=== PATIENT | male | born 1945 | race Caucasian/White ===

== ENCOUNTER 2020-02-25 11:50 | Day surgery (SDC) | payer MEDICARE, OTHER ==
[2020-02-24 08:34] VITALS: BMI 29.1
[~2020-02-25 11:50] MED LIST: LACTATED RINGERS 1,000 ML IV SCH; SODIUM CHLORIDE 0.9% 1,000 ML IV SCH
[2020-02-25 12:30] LABS: Basophils # (A) 0.1 k/uL (0-0.2); Basophils % (A) 1 %; Eosinophils # (A) 0.2 k/uL (0-0.7); Eosinophils % (A) 3 %; HCT 42.8 % (39.0-53.0); HGB 13.9 gm/dL (13.0-17.5); Lymphocytes # (A) 2.2 k/uL (1.0-4.8); Lymphocytes % (A) 29 %; MCH 30.8 pg (25.0-35.0); MCHC 32.6 g/dL (31.0-37.0); MCV 94.6 fL (80.0-100.0); Mean Platelet Volume 7.1; Monocytes # (A) 0.6 k/uL (0-1.0); Monocytes % (A) 8 %; Neutrophils # (A) 4.4 k/uL (1.3-7.7); Neutrophils % (A) 57 %; Platelet Count 250 k/uL (150-450); RBC 4.52 m/uL (4.30-5.90); RDW 13.4 % (11.5-15.5); WBC 7.8 k/uL (3.8-10.6)
[2020-02-25 13:03] LABS: Calcium 9.6 mg/dL (8.4-10.2)
[2020-02-25] MEDS ORDERED: fentaNYL (PF) 50 MCG/ML 2 ML AMP ONE (14:32)
[2020-02-25] MEDS ORDERED: GLYCOPYRROLATE 0.2 MG/ML 2 ML VIAL ONE (14:32)
[2020-02-25] MEDS ORDERED: ROCURONIUM BROMIDE 10 MG/ML 5 ML VIAL IV ONE (14:32)
[2020-02-25] MEDS ORDERED: FUROSEMIDE 10 MG/ML 2 ML VIAL ONE (14:32)
[2020-02-25] MEDS ORDERED: ISOPROTERENOL 250 MCG/1.25 ML SYR IV ONE (14:32)
[2020-02-25] MEDS ORDERED: NEOSTIGMINE 1 MG/ML 10 ML VIAL ONE (14:32)
[2020-02-25] MEDS ORDERED: SODIUM CHLORIDE 0.9% 1,000 ML IV ONE (14:32)
[2020-02-25] MEDS ORDERED: MIDAZOLAM 2 MG/2 ML VIAL ONE (14:32)
[2020-02-25] MEDS ORDERED: ePHEDrine SULFATE/0.9% NACL/PF 50 MG/5 ML SYRINGE IV ONE (14:32)
[2020-02-25] MEDS ORDERED: PHENYLEPHRINE-0.9% NACL SYG 1 MG/10 ML SYRINGE ONE (14:32)
[2020-02-25] MEDS ORDERED: PROPOFOL 10 MG/ML 20 ML VIAL IV ONE (14:32)
[2020-02-25] MEDS ORDERED: SUCCINYLCHOLINE CHLORIDE 100 MG/5 ML SYR IV ONE (14:32)
[2020-02-25] MEDS ORDERED: LIDOCAINE 1% INJ 10MG/ML (20 ML MDV) ONE ×2 (14:32→14:45)
[2020-02-25] MEDS ORDERED: HEPARIN SODIUM,PORCINE 10,000 UNIT/ML 1 ML VIAL ONE (14:32)
[2020-02-25 14:35] VITALS: RESP 16
[2020-02-25] MEDS ORDERED: HEPARIN SODIUM 1,000 UN/ML (10ML VL) ONE (14:56)
[2020-02-25] MEDS ORDERED: HEPARIN SODIUM (1,000 UNIT/ML) 1,000 UNIT in SODIUM CHLORIDE 0.9% 1,000 ML IRRIGATION ONE (15:11)
[2020-02-25] MEDS ORDERED: LIDOCAINE 1% INJ 10MG/ML (20 ML MDV) SQ ONE (15:26)
[2020-02-25] MEDS ORDERED: HEPARIN SOD,PORK IN 0.45% NACL 25,000 UNIT in 0.45% NACL 1 250ML.BAG IV ONE (15:45)
[2020-02-25] MEDS ORDERED: IOPAMIDOL-370 100ML BTL INJ ONE (17:03)
[2020-02-25] MEDS ORDERED: LACTATED RINGERS 1,000 ML IV ONE (18:26)
[2020-02-25] MEDS ORDERED: ACETAMINOPHEN TAB 325 MG TAB PO PRN (18:51)
[2020-02-25] MEDS ORDERED: HYDROcodone/APAP 5-325MG 1 EACH TAB PO PRN (18:51)
--- NOTE | 2020-02-25 18:51 | P.PCN ---
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 Written informed consent was obtained prior to the procedure. Procedure performed under general anesthesia After initial muscle relaxant use, muscle relaxants were not given thereafter in order to assess phrenic nerve during procedure. Patient prepped and draped as per protocol Full cryo-set up with standard preparation of the cryoablation tools done. Femoral Venous access obtained on the right and left groins Venous and arterial Sheaths placed. Diagnostic catheters for the high right atrium, phrenic nerve stimulation and pacing, His bundle, RV and coronary sinus placed Intracardiac echo catheter placed. Long sheath placed in the right atrium Left and right transseptal catheterization performed under intracardiac echo guidance. Intravenous heparin with aCT above 300 Later, catheter positioning and balloon positioning in the left atrium, under intracardiac echo guidance Diagnostic EP study with Drug infusion Coronary sinus pacing and recording Baseline measurements Left bundle branch block pattern QRS 133 ms, QT 4:30 milliseconds, OH 140 ms AH 43, HV 58 Atrial pacing performed from the high right atrium and the coronary sinus Burst stimulation and extra stimulation after double extra stimuli Easily inducible AV christine reentrant tachycardia prior to slow pathway ablation RV pacing VA Wenckebach block to 90 Ventricle extra stimulation performed Transseptal catheterization performed RA pressure 16/6/11 LA pressure 35/9/15 Transseptal catheterization performed with standard sheath. The cryoablation sheath was then placed with an over the wire exchange without any acute complications. All 4 pulmonary veins were isolated in the following sequence: Left superior followed by left inferior followed by right superior followed by right inferior The cryo-ablation balloon was placed at the os of each vein 1.5 mL of IV dye was injected to confirm an occluded vein Goal during cryoablation was to achieve complete occlusion of the pulmonary vein, achieve -30 degrees C at 30 seconds and achieve -40 degrees C at 60 seconds and a time to effect of less than 60-90 seconds, . If not the balloon was repositioned to obtain this result After completion of Cryoblation with durations from 180-240 seconds, entrance block was confirmed with the Attain circular catheter in a roving fashion around the antrum of the pulmonary veins Phrenic nerve pacing was performed from the SVC, right innominate vein area and diaphragm voltage was monitored. Diaphragmatic contractions were also monitored manually for strength of contraction. Parameter goals for each cryo freeze Complete occlusion of the appropriate vein -30 degrees C by 30 seconds -40 degrees C by 60 seconds Minimum between minus 40-55 degrees C Thaw time greater than 10 seconds Balloon visualized by intracardiac echo The esophagus was intubated. Esophageal Temperature monitoring with a CIRCA catheter formed. Esophageal deflection for hypothermia of the esophagus below 30 degrees C Left superior pulmonary vein Complete isolation, entrance block Left inferior pulmonary vein Complete isolation, entrance block Right superior pulmonary vein, during phrenic nerve pacing Complete isolation, entrance block Right inferior pulmonary vein, during phrenic nerve pacing Complete isolation, entrance block At the end of the procedure the Achieve catheter was once again used to check for entrance block Phrenic nerve stimulation was performed to confirm diaphragmatic stimulation the end of the procedure Cine fluoroscopy was performed at the very end of the procedure to confirm movement of both diaphragms with inspiration and expiration At the start of study patient was in A. fib He spontaneously converted during the procedure We performed complete isolation of the pulmonary veins 3-D and a Toradol mapping of the left atrium. Poni veins were completely isolated Voltage mapping was performed Linear ablation along the fractionated signals in the septum of the left atrium was performed And RF line of block was made from the superior, anterior or SPV down to our IPV This segment was completely isolated Thereafter he had no further atrial fibrillation inducible on and off Isuprel with burst stimulation extra stimulation However he had recurrent episodes of AV christine reentrant tachycardia both spontaneous and inducible 3-D electro anatomic mapping was performed The His bundle area and the Drake sinus was tagged Slow pathway was mapped RF ablation was performed with an irrigated tip catheter with the part of between 20-25 W for about 30 seconds Occasional junctional rhythm was noted, good contact force AV christine reentrant tachycardia rendered noninducible both on and off Isuprel At the end of the procedure the patient was extubated Heparin was reversed Venous sheaths were removed and hemostasis assured Procedures performed (PVI - CRYO Ablation) Diagnostic EP study CS pacing and recording Left and right transseptal catheterization 3D mapping) Intracardiac echocardiography Pulmonary vein isolation with transseptal and comprehensive EPS, 72700 Linear ablation, left atrium, +[id number] Atrial ablation for AV christine reentrant tachycardia/ablation of a discrete arrhythmia focus, +[id number] Drug Infusion +[id number]
[2020-02-25] MEDS ORDERED: ACETAMINOPHEN IV (For NPO) 1,000 MG in EMPTY BAG 1 BAG IVPB ONE (20:00)
[2020-02-25] MEDS: APIXABAN 5 MG TAB PO SCH (20:37)
[2020-02-26 07:44] VITALS: BP 147/69; PULSE 77; TEMP 97.7
--- NOTE | 2020-02-26 07:51 | P.DS ---
Providers Attending physician: Rush Johnson Primary care physician: [facility] Course: Patient is doing well. He denies any chest discomfort no dizziness lightheadedness or palpitations. His back hurts. He has no strokes Delaney His rhythm is normal his underlying left bundle branch block No orthopnea PND no pleuritic chest discomfort On examination he is afebrile 97.7F, blood pressure 114/69 mmHg, pulse rate in the 60s and 70s Pulse ox normal Breath sounds are clear no rhonchi no crackles Soft S1-S2 no murmurs or gallops no rub Abdomen is soft nontender extremities are warm no edema Groins healing well no hematoma Impression Paroxysmal symptomatic atrial fibrillation and intolerance to flecainide Recurrent palpitations almost on a daily basis Aortic valve replacement, by prostatic valve Preserved LV systolic function on intracardiac echo, no pericardial effusion Patient underwent a diagnostic EP study which revealed #1 paroxysmal atrial fibrillation #2 very frequent spontaneous episodes of AV christine reentrant tachycardia Patient underwent ablation for AVNRT, slow pathway ablation This was successful Fast pathway conduction remained intact postprocedure Tachycardia rendered noninducible Cryoablation of the pulmonary veins with complete isolation Linear ablation in the posterior septum along areas of fractionation Atrial fibrillation could not be induced despite high-dose Isuprel burst stimulation from multiple sites and atrial extra stimulation from multiple sites with double extrastimuli. Plan Continue amlodipine 5 mg daily Continue apixaban 5 mg twice daily Continue losartan Discharge home today in follow-up with Dr. Lofton in a week Patient Condition at Discharge: Stable Plan - Discharge Summary Discharge Rx Participant: Yes New Discharge Prescriptions: No Action Losartan [Cozaar] 25 mg PO DAILY amLODIPine [Norvasc] 5 mg PO DAILY Aspirin [Adult Low Dose Aspirin EC] 81 mg PO QAM Cholecalciferol [Vitamin D3 (25 Mcg = 1000 Iu)] 1,000 unit PO DAILY [place]-3 Fatty Acids/Fish Oil [Fish Oil 1,000 mg Softgel] 1 each PO DAILY Multivitamin/Iron/Folic Acid [Centrum Adults Tablet] 1 each PO DAILY Flaxseed Oil 1,000 mg PO DAILY Apixaban [Eliquis] 5 mg PO BID Discharge Medication List Apixaban [Eliquis] 5 mg PO BID 02/24/20 [History] Aspirin [Adult Low Dose Aspirin EC] 81 mg PO QAM 09/16/20 [History] Cholecalciferol [Vitamin D3 (25 Mcg = 1000 Iu)] 1,000 unit PO DAILY 02/24/20 [History] Flaxseed Oil 1,000 mg PO DAILY 02/24/20 [History] Losartan [Cozaar] 25 mg PO DAILY 02/24/20 [History] Multivitamin/Iron/Folic Acid [Centrum Adults Tablet] 1 each PO DAILY 02/24/20 [History] [place]-3 Fatty Acids/Fish Oil [Fish Oil 1,000 mg Softgel] 1 each PO DAILY 02/24/20 [History] amLODIPine [Norvasc] 5 mg PO DAILY 02/24/20 [History] Follow up Appointment(s)/Referral(s): Rush Johnson MD [STAFF PHYSICIAN] - As Needed Reba Lofton MD [STAFF PHYSICIAN] - 1 Week Activity/Diet/Wound Care/Special Instructions: Post EP study - Ablation instructions 1. Keep access sites dry for 2 days. 2. No heavy lifting or straining for 2 days. 3. Avoid bending the hips repeatedly for 2 days. 4. You may go up and down stairs slowly Call if the following is noted 1. Bleeding, increasing swelling or pain at the access sites. 2. Increasing chest discomfort, especially upon taking a deep breath. 3. Increasing shortness of breath, at rest or with exertion. 4. Undue cough / phlegm 5. Difficulty or pain while swallowing. 6. Pain or change in color in the extremities. 7. Fever, chills, rigors. 8. Increasing headache or neurologic symptoms. 9. Dizziness, fainting, palpitations Continue ELIQUIS Continue hypertension medications Continue aspirin Discharge Disposition: HOME SELF-CARE
--- NOTE | 2020-02-26 07:56 | P.PRLE ---
RE: YosvanyBrian Gabi Abbott Mr. Bar underwent a diagnostic EP study for symptomatic arrhythmias. He is intolerant of flecainide Patient underwent a diagnostic EP study which revealed #1 paroxysmal atrial fibrillation #2 very frequent spontaneous episodes as well as very easily inducible episodes of of AV christine reentrant tachycardia #3 left bundle branch block QRS Patient underwent ablation for AVNRT, slow pathway ablation This was successful Fast pathway conduction remained intact postprocedure Tachycardia rendered noninducible Cryoablation of the pulmonary veins with complete isolation Linear ablation in the posterior septum along areas of fractionation Atrial fibrillation could not be induced despite high-dose Isuprel burst stimulation from multiple sites and atrial extra stimulation from multiple sites with double extrastimuli. His aortic valve on intracardiac echo looks stable, no evidence for pericardial effusion LV function is normal Plan Continue amlodipine 5 mg daily Continue apixaban 5 mg twice daily Continue losartan Discharge home today in follow-up with Dr. Lofton in a week Thank you for entrusting me with the care of the patient Warm regards Sincerely Rush Johnson
[2020-02-26] MEDS: APIXABAN 5 MG TAB PO SCH (08:52)
[2020-02-26] MEDS ORDERED: amLODIPine 5 MG TAB PO SCH (09:00)
[2020-02-26] MEDS ORDERED: LOSARTAN 25 MG TAB PO SCH (09:00)
[2020-02-26] MEDS ORDERED: ASPIRIN 81 MG PO SCH (09:00)
== END 2020-02-26 14:55 | disposition home or self-care (01) ==
LOC: CATHEP 11:50 → 3NCARDOBS 18:23 → CATHEP 02-26 14:55
PROVIDERS: ATTEND Internal Medicine Clinical Cardiac Electrophysiology
DX: I48.0 Paroxysmal atrial fibrillation (principal); I47.1 Supraventricular tachycardia; R55 Syncope and collapse; I44.7 Left bundle-branch block, unspecified; Z95.2 Presence of prosthetic heart valve; I25.10 Atherosclerotic heart disease of native coronary artery without angina pectoris; I10 Essential (primary) hypertension; Z79.01 Long term (current) use of anticoagulants; Z79.82 Long term (current) use of aspirin; Z79.899 Other long term (current) drug therapy; Z88.8 Allergy status to other drugs, medicaments and biological substances
CPT/HCPCS: 85347; 93623; 93662; 93613; 93656; 93657; 80048; 85025; C1769 ×5; C1894 ×2; C1759; C1893; C1733; C1766; C1730; C1732; J2250; J1644 ×3; J1940; J2710; J0690; J2001; J3010; J2370; J0330; J2704; Q9967

== ENCOUNTER → 2020-10-07 | Outpatient (CLI) | payer OTHER ==
--- NOTE | 2020-10-10 06:54 | PE ---
EXAMINATION TYPE: PET CT fusion whole body DATE OF EXAM: 10/07/2020 COMPARISON: NONE HISTORY: Malignant melanoma recently diagnosed on back biopsy July 25 and subsequent surgical ex cision August 15, 2020 TECHNIQUE: Following the intravenous administration of 11.15 mCi of F-18 FDG, whole body images are performed from the top of skull to the bottom of feet. Images are reviewed on the computer in the co leopoldo, axial, and sagittal planes. Reconstructed rotating images are created on independent workstat ion and reviewed on the computer. A localization and attenuation correction CT is performed in conj unction with the PET scan. Blood glucose level was 97 SCAN: Initial Scan FINDINGS: HEAD AND NECK: No areas of suspicious hypermetabolic uptake. CHEST, MEDIASTINUM, AND HILAR REGION: No areas of suspicious hypermetabolic uptake. Heterogeneous fat stranding right posterior mid thorax near axial image 124 likely reflects scarring from surgical exc ision. No suspicious hypermetabolic uptake at this level. ABDOMEN AND PELVIS: No areas of suspicious hypermetabolic uptake. OSSEOUS STRUCTURES: No areas of suspicious hypermetabolic uptake. LOWER EXTREMITIES: No areas of suspicious hypermetabolic uptake. OTHER CT: Moderate calcified plaque bilateral carotid bulb level. Overlying sternal wires and mediast inal clips. Surgical change to distal left clavicle. Ascending aortic aneurysm up to 4.4 cm. Small to moderate size hiatal hernia. Diverticula in the sigmoid colon. Moderate-sized fat-containing left inguinal hernia. Prostate gland upper limits of normal in size. IMPRESSION: No areas of abnormal hypermetabolic uptake to suggest metastatic malignancy.
== END | disposition home or self-care (01) ==
LOC: RADPETMAIN 13:59
PROVIDERS: ATTEND Internal Medicine
DX: C43.9 Malignant melanoma of skin, unspecified (principal)
CPT/HCPCS: 78816; A9552

== ENCOUNTER → 2021-06-30 | Outpatient (CLI) | payer OTHER ==
--- NOTE | 2021-07-03 06:59 | PE ---
EXAMINATION TYPE: PET CT fusion skull to thigh DATE OF EXAM: 06/30/2021 COMPARISON: Prior PET/CT October 07, 2020 HISTORY: Malignant melanoma diagnosed on back biopsy July 25 and subsequent surgical excision [facility] 2020 TECHNIQUE: Following the intravenous administration of 11.21 mCi of F-18 FDG, whole body images are performed from the mid brain to the bottom of feet. Images are reviewed on the computer in the coron al, axial, and sagittal planes. Reconstructed rotating images are created on independent workstation and reviewed on the computer. A localization and attenuation correction CT is performed in conjunc tion with the PET scan. Blood glucose level equals 100. SCAN: Subsequent Scan FINDINGS: HEAD AND NECK: Entire head was not included. No new areas of suspicious hypermetabolic uptake. CHEST, MEDIASTINUM, AND HILAR REGION: No new areas of suspicious hypermetabolic uptake. Less well vis ualized scar posterior right mid thorax region. No suspicious hypermetabolic uptake at this level tirso r axial image 97. ABDOMEN AND PELVIS: No new areas of suspicious hypermetabolic uptake. OSSEOUS STRUCTURES: No new areas of suspicious hypermetabolic uptake. LOWER EXTREMITIES: No new areas of suspicious hypermetabolic uptake. OTHER CT: Moderate calcified plaque posteriorly bilateral carotid bulb level. Overlying sternal wires and mediastinal clips with metallic aortic valve redemonstrated. Surgical change to distal left clav icle. Ascending aortic aneurysm up to 4.4 redemonstrated. Surgical clips right axilla now seen. Small to moderate size hiatal hernia again seen. Diverticula in the sigmoid colon redemonstrated. Mod erate to large size fat-containing left inguinal hernia. Prostate gland upper limits of normal in siz e. Injection site left hand on the MIP images IMPRESSION: No areas of abnormal hypermetabolic uptake to suggest recurrent malignant melanoma.
== END | disposition home or self-care (01) ==
LOC: RADPETMAIN 11:54
PROVIDERS: ATTEND Internal Medicine
DX: C43.59 Malignant melanoma of other part of trunk (principal)
CPT/HCPCS: 78815; A9552

== ENCOUNTER 2022-02-08 09:34 | Emergency (ER) | payer OTHER ==
[2022-02-08 09:49] VITALS: BP 140/69; PULSE 57; RESP 18; TEMP 97.9
[2022-02-08 11:02] LABS: Basophils # (A) 0.1 k/uL (0-0.2); Basophils % (A) 1 %; Eosinophils # (A) 0.3 k/uL (0-0.7); Eosinophils % (A) 4 %; HCT 40.2 % (39.0-53.0); HGB 13.1 gm/dL (13.0-17.5); Lymphocytes # (A) 1.6 k/uL (1.0-4.8); Lymphocytes % (A) 20 %; MCH 30.6 pg (25.0-35.0); MCHC 32.7 g/dL (31.0-37.0); MCV 93.7 fL (80.0-100.0); Mean Platelet Volume 7.3; Monocytes # (A) 0.9 k/uL (0-1.0); Monocytes % (A) 12 %; Neutrophils # (A) 4.9 k/uL (1.3-7.7); Neutrophils % (A) 60 %; Platelet Count 206 k/uL (150-450); RBC 4.29 m/uL (4.30-5.90); RDW 12.6 % (11.5-15.5); WBC 8.1 k/uL (3.8-10.6)
[2022-02-08 11:12] LABS: Albumin 4.1 g/dL (3.5-5.0); Calcium 11.8 mg/dL (8.4-10.2); Potassium 4.5 mmol/L (3.5-5.1); Total Bilirubin 0.5 mg/dL (0.2-1.3); Total Protein 7.3 g/dL (6.3-8.2)
[2022-02-08] MEDS ORDERED: SODIUM CHLORIDE 0.9% 1,000 ML IV ONE (12:24)
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
== END 2022-02-08 13:37 | disposition home or self-care (01) ==
LOC: EC 09:34
DX: E83.52 Hypercalcemia (principal); I25.10 Atherosclerotic heart disease of native coronary artery without angina pectoris; I10 Essential (primary) hypertension; Z87.891 Personal history of nicotine dependence; Z79.82 Long term (current) use of aspirin; Z79.899 Other long term (current) drug therapy
CPT/HCPCS: 36415; 80053; 85025; 96360; 99284

== ENCOUNTER 2022-02-21 15:38 | Inpatient (IN) | payer OTHER, MEDICARE ==
[2022-02-21 17:32] LABS: Basophils # (A) 0.1 k/uL (0-0.2); Basophils % (A) 1 %; Eosinophils # (A) 0.3 k/uL (0-0.7); Eosinophils % (A) 4 %; HCT 39.1 % (39.0-53.0); HGB 13.1 gm/dL (13.0-17.5); Lymphocytes # (A) 2.1 k/uL (1.0-4.8); Lymphocytes % (A) 25 %; MCH 30.8 pg (25.0-35.0); MCHC 33.5 g/dL (31.0-37.0); Monocytes % (A) 12 %; Neutrophils # (A) 4.4 k/uL (1.3-7.7); Neutrophils % (A) 54 %; Platelet Count 215 k/uL (150-450); RBC 4.25 m/uL (4.30-5.90); RDW 12.9 % (11.5-15.5); WBC 8.1 k/uL (3.8-10.6)
[2022-02-21 17:39] LABS: Albumin 4.2 g/dL (3.5-5.0); Calcium 12.4 mg/dL (8.4-10.2); Potassium 4.5 mmol/L (3.5-5.1); Total Bilirubin 0.6 mg/dL (0.2-1.3)
[2022-02-21] MEDS ORDERED: SODIUM CHLORIDE 0.9% 1,000 ML IV STA (18:47)
[2022-02-21 19:02] LABS: Appearance,Urine Clear (Clear); Bilirubin,Urine Negative (Negative); Blood,Urine Negative (Negative); Color,Urine Light Yellow; Glucose,Urine (UA) Negative (Negative); Ketones,Urine Negative (Negative); Leukocyte Esterase,Urine Negative (Negative); Nitrite,Urine Negative (Negative); PH, Urine 6.5 (5.0-8.0); Protein,Urine Negative (Negative); Specific Gravity,Urine 1.009 (1.001-1.035); Urobilinogen,Urine <2.0 mg/dL (<2.0)
[2022-02-21 19:19] LABS: Magnesium 2.2 mg/dL (1.6-2.3); Phosphorus 5.1 mg/dL (2.5-4.5)
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
[2022-02-21 19:44] LABS: Ionized Calcium 6.6 mg/dL (4.5-5.3)
[2022-02-21] MEDS: SODIUM CHLORIDE 0.9% 1,000 ML IV SCH ×2 (20:04→23:00)
[2022-02-21] MEDS ORDERED: NALOXONE 0.4 MG/ML 1 ML VIAL IV PRN (20:25)
[2022-02-21] MEDS ORDERED: ALBUTEROL NEBULIZED 2.5 MG/3 ML INHALATION PRN (20:32)
[2022-02-21] MEDS ORDERED: amLODIPine 10 MG TAB PO SCH (21:00)
[2022-02-21] MEDS: APIXABAN 5 MG TAB PO SCH (21:34)
[2022-02-21] MEDS: METOPROLOL TARTRATE 50 MG TAB PO SCH (21:34)
[2022-02-21] MEDS: amLODIPine 10 MG TAB PO SCH (21:34)
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
--- NOTE | 2022-02-22 02:18 | US ---
EXAM: US Retroperitoneal Limited, Renal CLINICAL HISTORY: ITS.REASON US Reason: kidney US TECHNIQUE: Real-time limited ultrasound of the retroperitoneum with image documentation. COMPARISON: No relevant prior studies available. FINDINGS: Right kidney: 11.3 cm in length. Increased echogenicity of renal parenchyma. Small echogenic area. No solid mass. No hydronephrosis. Left kidney: 10.4 cm. Increased echogenicity of parenchyma. Small echogenic area. No solid mass. No hydronephrosis. 1.5 cm mildly complex cyst with a septation. Bladder: Normal. Bilateral ureteral jets are seen. IMPRESSION: Increased echogenicity of renal parenchyma consistent with nonspecific medical renal disease. No hydronephrosis. Small bilateral echogenic areas which may represent stones.
[2022-02-22] MEDS: SODIUM CHLORIDE 0.9% 1,000 ML IV SCH ×3 (06:25→22:16)
[2022-02-22] MEDS: LEVOTHYROXINE 50 MCG TAB PO SCH (06:25)
[2022-02-22 07:46] LABS: Basophils # (A) 0.1 k/uL (0-0.2); Basophils % (A) 1 %; Eosinophils # (A) 0.3 k/uL (0-0.7); Eosinophils % (A) 3 %; HCT 39.7 % (39.0-53.0); HGB 13.1 gm/dL (13.0-17.5); Lymphocytes # (A) 1.8 k/uL (1.0-4.8); Lymphocytes % (A) 21 %; MCH 30.7 pg (25.0-35.0); MCHC 32.9 g/dL (31.0-37.0); MCV 93.4 fL (80.0-100.0); Mean Platelet Volume 7.3; Monocytes # (A) 0.9 k/uL (0-1.0); Monocytes % (A) 11 %; Neutrophils # (A) 5.2 k/uL (1.3-7.7); Neutrophils % (A) 61 %; Platelet Count 209 k/uL (150-450); RBC 4.25 m/uL (4.30-5.90); RDW 12.8 % (11.5-15.5); WBC 8.4 k/uL (3.8-10.6)
[2022-02-22 07:59] LABS: Calcium 11.2 mg/dL (8.4-10.2); Magnesium 1.9 mg/dL (1.6-2.3); Potassium 4.2 mmol/L (3.5-5.1); Total Protein 6.8 g/dL (6.3-8.2)
[2022-02-22] MEDS: ATORVASTATIN 20 MG TAB PO SCH (08:14)
[2022-02-22] MEDS: APIXABAN 5 MG TAB PO SCH ×2 (08:14→22:15)
[2022-02-22] MEDS: amLODIPine 10 MG TAB PO SCH (08:14)
[2022-02-22] MEDS: ASPIRIN 81 MG PO SCH (08:14)
[2022-02-22] MEDS: METOPROLOL TARTRATE 50 MG TAB PO SCH ×2 (08:14→22:15)
[2022-02-22] MEDS: DULoxetine HCL 30 MG CAPSULE.DR PO SCH (08:14)
[2022-02-22] MEDS ORDERED: FUROSEMIDE 40 MG TAB PO SCH (09:00)
[2022-02-22] MEDS ORDERED: FUROSEMIDE 10 MG/ML 2 ML VIAL IV ONE (09:59)
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
[2022-02-22] MEDS: hydrALAZINE HCL 25 MG TAB PO SCH ×3 (13:17→22:15)
--- NOTE | 2022-02-22 13:23 | P.PN ---
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 Patient was admitted for acute renal failure. Nephrology consulted. Workup for hypercalcemia pending. Oncology consulted. Subjective: Patient seen and examined at bedside. No acute events overnight. He denies any chest pain, shortness of breath, abdominal pain, or urinary complaints. He does have constipation occasionally. Pertinent positives and negatives as discussed above, a complete review of systems was performed and all other systems are negative. Vitals Signs Reviewed. General: nontoxic, no distress, appears at stated age Derm: warm, dry Head: atraumatic, normocephalic, symmetric Eyes: EOMI, no lid lag, anicteric sclera Mouth: no lip lesion, mucus membranes moist Cardiovascular: S1S2 reg, systolic murmur Lungs: CTA bilateral, no rhonchi, no rales , no accessory muscle use Abdominal: soft, nontender to palpation, no guarding, no appreciable organomegaly Ext: no gross muscle atrophy, trace peripheral edema, no contractures Neuro: CN II-XI grossly intact, no focal neuro deficits Psych: Alert, oriented, appropriate affect Assessment and Plan: Hypercalcemia Acute kidney injury on CKD stage III -PTH appropriately suppressed -Further workup for hypercalcemia pending -Kidney Ultrasound - nonspecific medical renal disease, small bilateral echogenic areas which may represent stones -Hypercalcemia may be secondary to malignancy, oncology consult -Nephrology consulted -Decreased normal saline rate to 100 mL an hour -Patient will get 20 Lasix IV once today Hypertension -amlodipine 10 mg -Hydralazine 25mg 3 times a day added per nephrology History of melanoma, undergoing chemotherapy Chronic conditions: Atrial fibrillation Dyslipidemia -Continue home medications F: Normal saline 100 cc an hour E: Replete as needed N: Heart healthy diet A: As tolerated DVT ppx: Eliquis Code status: Full code Anticipated discharge place: Home Anticipated discharge time: 1-2 days Objective - Vital Signs Vital signs: Vital Signs Temp 97.7 F 02/22/22 11:30 Pulse 51 L 02/22/22 11:30 Resp 16 02/22/22 11:30 BP 154/71 02/22/22 11:30 Pulse Ox 97 02/22/22 11:30 FiO2 Intake & Output 02/21/22 02/22/22 02/22/22 18:59 06:59 18:59 Intake Total 600 Balance 600 Weight 73.482 kg 73.482 kg Intake: Intake, IV Titration 600 Amount Sodium Chloride 0.9% 1, 600 000 ml @ 100 mls/hr IV . Q10H [facility] Rx#:[id number] Other: Voiding Method Toilet # Voids 1 - Labs CBC & Chem 7: 02/22/22 07:33 02/22/22 07:33 Labs: Abnormal Lab Results - Last 24 Hours (Table) 02/21/22 02/21/22 02/21/22 Range/Units 17:07 17:07 18:25 RBC 4.25 L (4.30-5.90) m/uL BUN 37 H (9-20) mg/dL Creatinine 2.12 H (0.66-1.25) mg/dL Calcium 12.4 H (8.4-10.2) mg/dL Ionized Calcium Alvarez 6.6 H* (4.5-5.3) mg/dL Phosphorus 5.1 H (2.5-4.5) mg/dL PTH Intact (14.0-72.0) pg/mL 02/21/22 02/22/22 02/22/22 Range/Units 18:25 07:33 07:33 RBC 4.25 L (4.30-5.90) m/uL BUN 34 H (9-20) mg/dL Creatinine 1.93 H (0.66-1.25) mg/dL Calcium 11.2 H (8.4-10.2) mg/dL Ionized Calcium Alvarez (4.5-5.3) mg/dL Phosphorus (2.5-4.5) mg/dL PTH Intact 5.9 L (14.0-72.0) pg/mL
[2022-02-22] MEDS ORDERED: SODIUM CHLORIDE 0.9% 250 ML with PAMIDRONATE 30 MG IV ONE ×2 (14:00)
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
[2022-02-23] MEDS: SODIUM CHLORIDE 0.9% 1,000 ML IV SCH (02:38)
[2022-02-23 04:21] VITALS: RESP 16
[2022-02-23] MEDS: LEVOTHYROXINE 50 MCG TAB PO SCH (05:10)
[2022-02-23 08:09] LABS: ALT 15 U/L (4-49); AST 19 U/L (17-59); African American GFR (CKD) 37 (>60 ml/min/1.73 sqM); Albumin 3.7 g/dL (3.5-5.0); Albumin/Globulin Ratio 1.4; Alkaline Phosphatase 53 U/L (38-126); Anion Gap 9 mmol/L; Blood Urea Nitrogen 34 mg/dL (9-20); Calcium 10.5 mg/dL (8.4-10.2); Carbon Dioxide 27 mmol/L (22-30); Chloride 104 mmol/L (98-107); Globulin 2.7 g/dL; Glucose 91 mg/dL (74-99); Magnesium 1.8 mg/dL (1.6-2.3); Non-African American GFR(CKD) 32 (>60 ml/min/1.73 sqM); Sodium 140 mmol/L (137-145); Total Bilirubin 0.6 mg/dL (0.2-1.3); Total Protein 6.4 g/dL (6.3-8.2)
[2022-02-23] MEDS: ATORVASTATIN 20 MG TAB PO SCH (08:51)
[2022-02-23] MEDS: METOPROLOL TARTRATE 50 MG TAB PO SCH (08:51)
[2022-02-23] MEDS: ASPIRIN 81 MG PO SCH (08:51)
[2022-02-23] MEDS: DULoxetine HCL 30 MG CAPSULE.DR PO SCH (08:51)
[2022-02-23] MEDS: hydrALAZINE HCL 25 MG TAB PO SCH (08:51)
[2022-02-23] MEDS: APIXABAN 5 MG TAB PO SCH (08:51)
[2022-02-23] MEDS ORDERED: amLODIPine 10 MG TAB PO SCH (09:00)
[2022-02-23 10:30] LABS: Protein, Total 6.7 g/dL (6.2-8.2)
--- NOTE | 2022-02-23 11:24 | P.PN ---
Subjective Patient is seen in follow-up for acute kidney injury on chronic kidney disease. Renal function stable. Calcium level trending down. Oral intake is good. Good urine output. No vomiting or diarrhea. Vital signs are stable. General: Awake. No acute distress. HEENT: Head exam is unremarkable. LUNGS: Breath sounds decreased. HEART: Rate and Rhythm are regular. ABDOMEN: Soft, no distention. EXTREMITITES: No edema. Objective - Vital Signs Vital signs: Vital Signs Temp 98.0 F 02/23/22 04:18 Pulse 61 02/23/22 08:50 Resp 16 02/23/22 04:18 BP 148/74 02/23/22 08:50 Pulse Ox 97 02/23/22 08:50 FiO2 Intake & Output 02/22/22 02/23/22 02/23/22 18:59 06:59 18:59 Intake Total 600 1200 Balance 600 1200 Weight 73.482 kg Intake: Intake, IV Titration 600 1200 Amount Sodium Chloride 0.9% 1, 600 1200 000 ml @ 100 mls/hr IV . Q10H [facility] Rx#:[id number] Other: Voiding Method Toilet Toilet Toilet # Voids 1 1 - Labs CBC & Chem 7: 02/22/22 07:33 02/23/22 06:20 Labs: Abnormal Lab Results - Last 24 Hours (Table) 02/22/22 02/23/22 Range/Units 08:33 06:20 BUN 34 H (9-20) mg/dL Creatinine 1.94 H (0.66-1.25) mg/dL Calcium 10.5 H (8.4-10.2) mg/dL U Free Lambda Light Ch 1.13 H (0.00-0.38) mg/dL Assessment and Plan Plan: Assessment: 1. Acute kidney injury mostly prerenal secondary to diuresis and hypercalcemia. Creatinine was 2.12 on admission and is stable at 1.94 today. UA benign. No hydronephrosis kidney ultrasound. 2. Chronic kidney disease stage IIIa secondary to nephrosclerosis with creatinine of 1.15 in February 2020. Patient follows with nephrology out of [place] in [place]. 3. Hypercalcemia possibly from volume contraction. Patient does have history of melanoma and is maintained on chemotherapy. States he was taking vitamin D supplementation but had stopped it about 2 weeks ago. PTH appropriately suppressed at 5.9. Vitamin D 35.6. Oncology also following. 4. Hypertension with chronic kidney disease. 5. Melanoma maintain a chemotherapy. Plan: Maintain IV fluids. Status post IV Lasix given February 22 and also received a dose of pamidronate. Follow-up pending workup for hypercalcemia. Avoid nephrotoxins. Add oral torsemide 10 mg once daily. Continue to monitor renal function and urine output. Repeat BMP and magnesium level 2-3 days postdischarge. Patient to follow-up with this cat swamper an oncologist within 1 week post discharge. Advised to avoid any calcium or vitamin D supplementations for now.
[2022-02-23] MEDS ORDERED: TORSEMIDE 20 MG TAB PO SCH (11:30)
[2022-02-23 13:21] VITALS: BP 163/77; PULSE 56; TEMP 98.2
[2022-02-23 13:59] LABS: Free Lambda Lt Chain Qnt, Seru 3.61 mg/dL (0.57-2.63)
--- NOTE | 2022-02-23 14:00 | CDI ---
Documentation Clarification Form Date: 02/23/2022 01:41:34 PM From: Jimena NdiayeHicksALIRIO rocha, CCDS Admit Date: 02/21/2022 08:55:00 PM Patient Name: Brian Bar Visit Number: [id number] Discharge Date: ATTENTION: The Clinical Documentation Specialists (CDI) and [facility] Coding Staff appreciate your assistance in clarifying documentation. Please respond to the clarification below the line at the bottom and electronically sign. The CDI & [facility] Coding staff will review the response and follow-up if needed. Please note: Queries are made part of the Legal Health Record. If you have any questions, please contact the author of this message via ITS. Dr. Cameron Whitman: Atrial Fibrillation is documented in the 02/22 Nephrology Consult, the 02/22 Oncology Consult and the 02/22 Attending Physician Progress note, without further specificity. Additional clarification regarding the type of Atrial Fibrillation is requested. History/Risk Factors per the 02/21 H/P: Melanoma currently undergoing chemotherapy, Atrial Fibrillation, Hypertension, Hyperlipidemia, CAD, Pneumonia, Cardiac Valve Replacement. Clinical Indicators: Presented to the ED on 02/21 from the Safety Investigator office with Hypercalcemia. Creatinine has progressed in past two months from 1.2 to 2. Admit with Hypercalcemia, IRMA 02/21 VS: T 97.8, P 57, R 16, BP 136/67, PO 97 RA, BMI: 27.0 02/21 LAB: RBC 4.25; BUN 37, Creatinine 2.12, Calcium 12.4, Ionized Calcium edil 6.6, Phosphorus 5.1, PTH Intact 5.9 02/21 UA: Clear 02/21 EKG: R 54 Sinus Bradycardia, LBBB. Treatment 02/21: IV Na Chl 1,000 mls @ 900 mls/hr q1H, IV Na Chl 1,000 mls @ 100 mls/hr q10H, INH Ventolin 2.5 mg q4H/prn, po Eliquis 5 mg BID, po Lopressor 50 mg BID, po Norvasc 10 mg BID. Please clarify the type of Atrial Fibrillation, if known: [ ] Chronic [ ] Permanent [ ] Paroxysmal [ ] Persistent [ ] Other, please specify [ ] Unable to determine (Template Last Revised: October 2020) 02/26 Query response documented in the 02/23 Discharge Summary, Dr. Onofre Whitman: Paroxysmal Atrial Fibrillation. (CDI: MENA) MARGOTHD
--- NOTE | 2022-02-23 14:39 | P.DS ---
Providers Date of admission: 02/21/22 20:55 Expected date of discharge: 02/23/22 Attending physician: Kennedi Wade MD Consults: 02/21/22 20:25 Consult Physician Urgent Consulting Provider: Dwayne Crews Consult Reason/Comments: ARF Do you want consulting provider notified?: Yes Consult Physician Urgent Consulting Provider: Alberto Raman Consult Reason/Comments: melanoma, concern for mets Do you want consulting provider notified?: Yes Primary care physician: [facility] Hospital Course: Discharge Diagnosis: Hypercalcemia Acute kidney injury on this EKG stasis. Hypertension History of melanoma, undergoing chemotherapy Atrial fibrillation, unknown type likely paroxysmal Dyslipidemia Hospital Course: 77-year-old male with history of melanoma on active chemotherapy presented from his rate and cost analyst's office with concerns of worsening creatinine and hypercalcemia. Patient was admitted for acute renal failure. Nephrology was consulted. Patient had fluids as well as Lasix which improved his hypercalcemia. Oncology was also consulted. He was given one dose of pamidronate. Patient will be discharged on a hypertension regimen with amlodipine, hydralazine, and torsemide. She should follow-up with his PCP, oncology, nephrology within 1 week. He needs a repeat BMP and magnesium. Workup for hypercalcemia still pending in lab. Patient seen and examined at bedside. Vital signs reviewed and stable. General: nontoxic, no distress, appears at stated age Derm: warm, dry Head: atraumatic, normocephalic, symmetric Eyes: EOMI, no lid lag, anicteric sclera Mouth: no lip lesion, mucus membranes moist Cardiovascular: S1S2 reg, no murmur Lungs: CTA bilateral, no rhonchi, no rales , no accessory muscle use Abdominal: soft, nontender to palpation, no guarding, no appreciable organomegaly Ext: no gross muscle atrophy, trace peripheral edema, no contractures Neuro: CN II-XI grossly intact, no focal neuro deficits Psych: Alert, oriented, appropriate affect A total of 46 minutes of time were spent preparing this complex discharge summary. Patient was discharged on 02/23/22 at 11:53. Patient Condition at Discharge: Fair Plan - Discharge Summary Discharge Rx Participant: No New Discharge Prescriptions: New hydrALAZINE HCL [Apresoline] 25 mg PO TID #30 tab Torsemide [Demadex] 10 mg PO DAILY #30 tablet amLODIPine [Norvasc] 10 mg PO DAILY #30 tablet Continue Aspirin [Adult Low Dose Aspirin EC] 81 mg PO DAILY [place]-3 Fatty Acids/Fish Oil [Fish Oil 1,000 mg Softgel] 1 cap PO DAILY flaxseed oiL [Flaxseed Oil] 1,000 mg PO DAILY Apixaban [Eliquis] 5 mg PO BID Levothyroxine Sodium [Synthroid] 50 mcg PO DAILY Lidocaine 5% Patch [Lidoderm 5% Patch] 1 patch TOPICAL DAILY DULoxetine HCL [Cymbalta] 30 mg PO DAILY Cyanocobalamin [Vitamin B-12] 500 mcg PO DAILY Metoprolol Tartrate [Lopressor] 50 mg PO BID Loratadine 10 mg PO DAILY Carboxymethylcellulose Sodium [Refresh Tears] 1 drop BOTH EYES QID Rosuvastatin [Crestor] 10 mg PO DAILY Albuterol Sulfate [Albuterol Sulfate Hfa] 1 puff PO RT-Q4H PRN PRN Reason: Shortness Of Breath Discontinued Multivitamin/Iron/Folic Acid [Centrum Adults Tablet] 1 tab PO DAILY amLODIPine 10 mg PO BID Discharge Medication List Apixaban [Eliquis] 5 mg PO BID 02/24/20 [History] Aspirin [Adult Low Dose Aspirin EC] 81 mg PO DAILY 02/24/20 [History] [place]-3 Fatty Acids/Fish Oil [Fish Oil 1,000 mg Softgel] 1 cap PO DAILY 02/24/20 [History] flaxseed oiL [Flaxseed Oil] 1,000 mg PO DAILY 02/24/20 [History] Albuterol Sulfate [Albuterol Sulfate Hfa] 1 puff PO RT-Q4H PRN 02/08/22 [Hi story] Carboxymethylcellulose Sodium [Refresh Tears] 1 drop BOTH EYES QID 02/08/22 [History] Cyanocobalamin [Vitamin B-12] 500 mcg PO DAILY 02/08/22 [History] DULoxetine HCL [Cymbalta] 30 mg PO DAILY 02/08/22 [History] Levothyroxine Sodium [Synthroid] 50 mcg PO DAILY 02/08/22 [History] Lidocaine 5% Patch [Lidoderm 5% Patch] 1 patch TOPICAL DAILY 02/08/22 [History] Loratadine 10 mg PO DAILY 02/08/22 [History] Metoprolol Tartrate [Lopressor] 50 mg PO BID 02/08/22 [History] Rosuvastatin [Crestor] 10 mg PO DAILY 02/08/22 [History] Torsemide [Demadex] 10 mg PO DAILY #30 tablet 02/23/22 [Rx] amLODIPine [Norvasc] 10 mg PO DAILY #30 tablet 02/23/22 [Rx] hydrALAZINE HCL [Apresoline] 25 mg PO TID #30 tab 02/23/22 [Rx] Follow up Appointment(s)/Referral(s): [facility],Clinic [Primary Care Provider] - 03/08/22 3:00 pm Patient Instructions/Handouts: Acute Kidney Injury (DC), Chronic Kidney Disease (DC) Activity/Diet/Wound Care/Special Instructions: Please follow up with your PCP, rate and cost analyst and oncologist within 1 week. Please avoid any calcium or vitamin D supplements. Your PCP should order a repeat bloodwork including BMP and Mg 2-3 days after your discharge. Discharge Disposition: HOME SELF-CARE
[2022-02-23 14:59] LABS: Albumin 3.78 g/dL (3.80-4.90); Gamma Globulin 1.31 g/dL (0.70-1.50)
--- NOTE | 2022-02-23 18:02 | P.PN ---
Subjective Progress Note Date: 02/23/22 Principal diagnosis: Hypercalcemia -Received pamidronate 30 mg IV yesterday -No acute events overnight -Continues to be asymptomatic from hypercalcemia. Calcium trending down to 10.5 today -Vitamin D 25 hydroxy was normal with a suppressed PTH. Parathyroid hormone related peptide is pending Objective - Vital Signs Vital signs: Vital Signs Temp 98.2 F 02/23/22 13:00 Pulse 56 L 02/23/22 13:00 Resp 16 02/23/22 13:00 BP 163/77 02/23/22 13:00 Pulse Ox 97 02/23/22 13:00 FiO2 Intake & Output 02/22/22 02/23/22 02/23/22 18:59 06:59 18:59 Intake Total 600 1200 Balance 600 1200 Weight 73.482 kg Intake: Intake, IV Titration 600 1200 Amount Sodium Chloride 0.9% 1, 600 1200 000 ml @ 100 mls/hr IV . Q10H [facility] Rx#:[id number] Other: Voiding Method Toilet Toilet Toilet # Voids 1 1 1 - Constitutional General appearance: Present: average body habitus, cooperative, no acute distress - EENT Eyes: Present: EOMI ENT: Present: hard of hearing - Respiratory Respiratory: bilateral: CTA - Cardiovascular Rhythm: regular Abnormal Heart Sounds: Present: systolic murmur - Gastrointestinal General gastrointestinal: Present: normal bowel sounds. Absent: distended, tenderness - Integumentary Integumentary: Present: rash - Neurologic Neurologic: Present: CNII-XII intact - Psychiatric Psychiatric: Present: A&O x's 3, appropriate affect - Labs CBC & Chem 7: 02/22/22 07:33 02/23/22 06:20 Labs: Abnormal Lab Results - Last 24 Hours (Table) 02/22/22 02/22/22 02/23/22 Range/Units 07:33 08:33 06:20 BUN 34 H (9-20) mg/dL Creatinine 1.94 H (0.66-1.25) mg/dL Calcium 10.5 H (8.4-10.2) mg/dL Albumin (PEP) 3.78 L (3.80-4.90) g/dL U Free Lambda Light Ch 1.13 H (0.00-0.38) mg/dL Free Lambda LC, Quant 3.61 H (0.57-2.63) mg/dL Assessment and Plan Assessment: Mr. Bar is a 77-year-old gentleman with a past medical history significant for melanoma, for which he's had surgical excision of 4-5 lesions and has received adjuvant pembrolizumab who was admitted for hypercalcemia Plan: -No clear etiology of his hypercalcemia at this time -He received pamidronate 30 mg IV with subsequent decrease in his calcium to 10.5 this morning -He'll be undergoing restaging PET/CT for his melanoma in the near future, which [facility] -Given that he is asymptomatic with improving calcium, there is no need for urgent CT imaging at this time -He is cleared for discharge from a oncology perspective. He'll follow up with his primary oncologist Dr. Lobo at the [facility] in [place]
--- NOTE | 2022-02-26 10:30 | CDI ---
Documentation Clarification Form Date: 02/26/2022 10:16:07 AM From: Jimena Hicks CCS, CCDS Admit Date: 02/22/2022 10:26:00 PM Patient Name: Mickie Brito Visit Number: [id number] Discharge Date: ATTENTION: The Clinical Documentation Specialists (CDI) and [facility] Coding Staff appreciate your assistance in clarifying documentation. Please respond to the clarification below the line at the bottom and electronically sign. The CDI & [facility] Coding staff will review the response and follow-up if needed. Please note: Queries are made part of the Legal Health Record. If you have any questions, please contact the author of this message via ITS. Dr. Jose Enrique Herman: Acute postoperative delirium, resolving is documented in the 02/25 Orthopedic Surgery Progress Note. Additional clarification regarding the cause of delirium is requested. History/Risk Factors per the 02/23 H/P: CAD with Stent, Angina, TIA, Fibromyalgia, GERD, Hypertension, NH, Osteoarthritis, Gastric Strictures/Dysphagia/Hiatal Hernia status post EGD with dilations, Chronic generalized pain/low back pain/Herniated disc in low back status post fusion, Kidney stones. Clinical Indicators: Presented to the ED on 02/22 after a fall in a parking lot with left leg and hip pain. Alert and Oriented x3. Admit Fracture of the Left Femoral Neck 02/24 Procedure: Left direct anterior total hip arthroplasty. 02/22 VS: T 98.1, P 100, R 20, BP 125/77, PO 100 RA, BMI: 31.0. 02/25 VS: T 99.0, P 80, R 17, BP 122/73, PO 100 RA 02/22 LAB: Chloride 109, CO2 20, BUN 20, Creatinine 1.42, Glucose 103 02/25 LAB: RBC 3.12, Hgb 9.4, Hct 30.1, Plt Ct 136, Lymph 0.67 Treatment 02/22: IV Dilaudid 0.5 mg x1, IV Dilaudid 0.5 mg q3H/prn. 02/25: po Brilinta, po [id number], po Oxyir 5 mg q4H/prn, po Tylenol 1,000 mg q8H Please further clarify the documented delirium if possible: [ ] Metabolic Encephalopathy [ ] Toxic Encephalopathy [ ] Other, please specify: [ ] Unable to determine (Template Last Revised: August 2020) MTDD
== END 2022-02-23 15:29 | disposition home or self-care (01) | DRG 641 ==
LOC: EC 15:38 → 6NMEDSUR 20:55 → 5NMEDONC 21:10
PROVIDERS: ADMIT Internal Medicine; ATTEND Internal Medicine
DX: E83.52 Hypercalcemia (principal); N17.9 Acute kidney failure, unspecified; C43.9 Malignant melanoma of skin, unspecified; I48.0 Paroxysmal atrial fibrillation; N18.31 Chronic kidney disease, stage 3a; I71.4 Abdominal aortic aneurysm, without rupture; J44.9 Chronic obstructive pulmonary disease, unspecified; I12.9 Hypertensive chronic kidney disease with stage 1 through stage 4 chronic kidney disease, or unspecified chronic kidney disease; T50.2X5A Adverse effect of carbonic-anhydrase inhibitors, benzothiadiazides and other diuretics, initial encounter; Z28.310 Unvaccinated for COVID-19; E03.9 Hypothyroidism, unspecified; I25.10 Atherosclerotic heart disease of native coronary artery without angina pectoris; R00.1 Bradycardia, unspecified; E78.5 Hyperlipidemia, unspecified; I44.7 Left bundle-branch block, unspecified; H91.90 Unspecified hearing loss, unspecified ear; K59.00 Constipation, unspecified; Z79.01 Long term (current) use of anticoagulants; Z79.82 Long term (current) use of aspirin; Z79.890 Hormone replacement therapy; Z79.899 Other long term (current) drug therapy; Z87.891 Personal history of nicotine dependence; Z95.2 Presence of prosthetic heart valve; Z87.01 Personal history of pneumonia (recurrent); Z88.8 Allergy status to other drugs, medicaments and biological substances
CPT/HCPCS: 36415; 76770; 80053; 81003; 82164; 82306; 82330; 82652; 83690; 83735; 83883; 83930; 83935; 83970; 84100; 84165; 85025; 86334; 86335; 93005; 96360; 96361; 99285

== ENCOUNTER → 2022-03-16 | Outpatient (CLI) | payer OTHER, MEDICARE ==
--- NOTE | 2022-03-16 13:12 | PE ---
EXAMINATION TYPE: PET CT fusion whole body DATE OF EXAM: 03/16/2022 COMPARISON: NONE HISTORY: Melanoma progress study. Originally diagnosed on back biopsy July 25 and subsequent souza rgical excision August 15, 2020 TECHNIQUE: Following the intravenous administration of 11.79 mCi of F-18 FDG, whole body images are performed from the top of skull to the bottom of feet. Images are reviewed on the computer in the co leopoldo, axial, and sagittal planes. Reconstructed rotating images are created on independent workstat ion and reviewed on the computer. A localization and attenuation correction CT is performed in conj unction with the PET scan. Blood glucose level equals 91. SCAN: Subsequent Scan FINDINGS: HEAD AND NECK: Entire head is included. No new areas of suspicious hypermetabolic uptake. CHEST, MEDIASTINUM, AND HILAR REGION: No new areas of suspicious hypermetabolic uptake. Scar not well seen posterior right mid thorax region. No suspicious hypermetabolic uptake at this level . ABDOMEN AND PELVIS: No new areas of suspicious hypermetabolic uptake. OSSEOUS STRUCTURES: No new areas of suspicious hypermetabolic uptake. LOWER EXTREMITIES: No new areas of suspicious hypermetabolic uptake. OTHER CT: Mild to moderate calcified plaque posteriorly bilateral carotid bulb level is redemonstrate d. Overlying sternal wires and mediastinal clips with metallic aortic valve redemonstrated. Surgical change to distal left clavicle redemonstrated. Ascending aortic aneurysm up to 4.4 redemonstrated. Souza rgical clips right axilla again seen. Slightly enlarged subcarinal lymph node axial image 109 is stab le and remains ametabolic. Small to moderate size hiatal hernia redemonstrated. Diverticula in the sigmoid colon in the pelvis r edemonstrated. There is large size fat-containing left inguinal hernia redemonstrated. Prostate gland stable and mildly enlarged. IMPRESSION: No areas of abnormal hypermetabolic uptake to suggest recurrent or new metastatic maligna nt melanoma.
== END | disposition home or self-care (01) ==
LOC: RADPETMAIN 10:04
PROVIDERS: ATTEND Internal Medicine
DX: C43.9 Malignant melanoma of skin, unspecified (principal)
CPT/HCPCS: 78816; A9552

== ENCOUNTER 2022-04-16 23:33 | Inpatient (IN) | payer OTHER, MEDICARE ==
[2022-04-16] MEDS ORDERED: IPRATROPIUM-ALBUTEROL 3 ML NEB INHALATION STA (23:45)
[2022-04-16] MEDS ORDERED: MORPHINE SULFATE 2 MG/ML SYRINGE IVP STA (23:45)
[2022-04-16] MEDS ORDERED: LORazepam 2 MG/ML INJ IV STA (23:45)
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
--- NOTE | 2022-04-17 | XR ---
EXAMINATION TYPE: XR chest 1V portable DATE OF EXAM: 04/16/2022 COMPARISON: NONE HISTORY: Short of breath TECHNIQUE: Single view FINDINGS: There is patchy bilateral pulmonary airspace infiltrates. There is plate with screws fixing the left clavicle. Pulmonary interstitial and airspace edema. There are multiple old left-sided rib fractures. There are clips at the right axilla. IMPRESSION: Patchy pulmonary bilateral infiltrates that could relate to RDS. Pulmonary lymphangitic m etastatic disease is possible.
[2022-04-17 00:05] LABS: Basophils # (A) 0.1 k/uL (0-0.2); Basophils % (A) 1 %; Eosinophils # (A) 0.3 k/uL (0-0.7); Eosinophils % (A) 1 %; HCT 34.2 % (39.0-53.0); HGB 11.8 gm/dL (13.0-17.5); Lymphocytes # (A) 1.7 k/uL (1.0-4.8); Lymphocytes % (A) 9 %; MCH 31.8 pg (25.0-35.0); MCHC 34.5 g/dL (31.0-37.0); MCV 92.1 fL (80.0-100.0); Mean Platelet Volume 8.1; Monocytes # (A) 1.8 k/uL (0-1.0); Monocytes % (A) 10 %; Neutrophils # (A) 14.6 k/uL (1.3-7.7); Neutrophils % (A) 77 %; Platelet Count 228 k/uL (150-450); RBC 3.71 m/uL (4.30-5.90); RDW 13.5 % (11.5-15.5); WBC 18.9 k/uL (3.8-10.6)
[2022-04-17 00:21] LABS: Calcium 9.3 mg/dL (8.4-10.2)
[2022-04-17 00:22] LABS: Partial Thromboplastin Time 24.9 sec (22.0-30.0); Prothrombin Time 10.5 sec (9.0-12.0); Total Protein 7.7 g/dL (6.3-8.2)
[2022-04-17 00:23] LABS: Albumin 4.5 g/dL (3.5-5.0); Potassium 5.1 mmol/L (3.5-5.1); Total Bilirubin 1.1 mg/dL (0.2-1.3)
[2022-04-17] MEDS ORDERED: FUROSEMIDE 10 MG/ML 10 ML VIAL IV STA (00:31)
[2022-04-17] MEDS ORDERED: AZITHROMYCIN 500 MG in SODIUM CHLORIDE 0.9% 250 ML IVPB STA (00:31)
[2022-04-17] MEDS ORDERED: MORPHINE SULFATE 4 MG/ML SYRINGE IV PRN (01:11)
[2022-04-17] MEDS ORDERED: IPRATROPIUM-ALBUTEROL 3 ML NEB INHALATION STA (01:11)
[2022-04-17] MEDS ORDERED: ONDANSETRON 4 MG/2 ML VIAL IVP PRN (01:11)
[2022-04-17] MEDS ORDERED: NALOXONE 0.4 MG/ML 1 ML VIAL IV PRN (01:11)
[2022-04-17] MEDS ORDERED: FUROSEMIDE 10 MG/ML 4 ML VIAL IV SCH ×2 (01:15→21:00)
[2022-04-17 01:58] LABS: C Reactive Protein 5.5 mg/dL (<1.0)
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
[2022-04-17] MEDS: PANTOPRAZOLE 40 MG/10 ML VIAL IV SCH (08:04)
[2022-04-17] MEDS: AZITHROMYCIN 250 MG TAB PO SCH (08:05)
[2022-04-17] MEDS: SODIUM CHLORIDE 0.9% 1,000 ML IV SCH (08:05)
[2022-04-17] MEDS ORDERED: ENOXAPARIN 40 MG/0.4 ML SYRINGE SQ SCH (09:00)
[2022-04-17] MEDS: ALBUTEROL NEBULIZED 2.5 MG/3 ML INHALATION PRN ×3 (11:16→20:18)
[2022-04-17 11:19] VITALS: BMI 26.6
--- NOTE | 2022-04-17 12:32 | P.PN ---
Progress Note - Text Progress Note Date: 04/17/22 Hospital Course: 63-year-old male with history of systolic CHF, AV replacement, PPM, PVD presented with worsening right leg claudication. CT angiogram showed occlusion of the right common iliac artery with reconstitution at the level of the femoral artery, occlusion of right superficial femoral artery from the origin with reconstitution just superior to the popliteal artery, occlusion of the left superficial femoral artery from the origin with reconstitution just superior to the popliteal artery. 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 Vascular surgery consulted. Patient to be transferred to [facility] for further intervention with Dr. Feliz. Subjective: Patient seen and examined at bedside. No acute events overnight. He continues to complain about right lower extremity pain at rest as well as with ambulation. He denies any chest pain, shortness of breath, diarrhea, constipation or urinary complaints. Has occasional abdominal pain. Pertinent positives and negatives as discussed above, a complete review of systems was performed and all other systems are negative. Vitals Signs Reviewed. General: nontoxic, no distress, appears at stated age Derm: warm, dry Head: atraumatic, normocephalic, symmetric Eyes: EOMI, no lid lag, anicteric sclera Mouth: no lip lesion, mucus membranes moist Cardiovascular: S1S2 reg, no murmur, diminished pulses bilateral lower extremity Lungs: CTA bilateral, no rhonchi, no rales , no accessory muscle use Abdominal: soft, nontender to palpation, no guarding, no appreciable organomegaly Ext: no gross muscle atrophy, trace edema lower extremities bilaterally, tenderness to palpation bilateral lower extremities, no digital cyanosis Neuro: CN II-XI grossly intact, no focal neuro deficits Psych: Alert, oriented, appropriate affect Assessment and Plan: Right lower extremity claudication with severe peripheral vascular disease -Vascular surgery consulted -On heparin drip -Aspirin, statin -plavix held -patient to be transferred to [facility] when bed available IRMA - resolved -back on diuretics Chronic systolic CHF Hypertension Dyslipidemia -Home medications reviewed and reconciled DVT ppx: Heparin drip Code status: Full code Anticipated discharge place: Transfer to [facility] Anticipated discharge time: likely today
--- NOTE | 2022-04-17 12:36 | CA ---
Transthoracic Echo Report Name: Brian Bar Age: 77 Gender: M : 1945 Exam Date: 04/17/2022 08:12 Exam Location: [facility] Ht (in): 65 Wt (lb): 160 Ordering Physician: Oziel Arrington DO Attending/Referring Phys: [id number], [employer] Yohana Chi RDCS Procedure CPT: Indications: Heart failure Cardiac Hx: Technical Quality: Fair Contrast 1: Total Dose (mL): Contrast 2: Total Dose (mL): MEASUREMENTS (Male / Female) Normal Values 2D ECHO LV Diastolic Diameter PLAX 4.0 cm 4.2 - 5.9 / 3.9 - 5.3 cm LV Systolic Diameter PLAX 2.8 cm IVS Diastolic Thickness 1.6 cm 0.6 - 1.0 / 0.6 - 0.9 cm LVPW Diastolic Thickness 1.1 cm 0.6 - 1.0 / 0.6 - 0.9 cm LV Relative Wall Thickness 0.7 LVOT Diameter 1.5 cm LA Volume 95.4 cm??? 18 - 58 / 22 - 52 cm??? M-MODE Aortic Root Diameter MM 2.2 cm LA Systolic Diameter MM 5.2 cm LA Ao Ratio MM 2.4 AV Cusp Separation MM 1.3 cm DOPPLER AV Peak Velocity 403.3 cm/s AV Peak Gradient 65.1 mmHg AV Mean Velocity 291.5 cm/s AV Mean Gradient 38.6 mmHg AV Velocity Time Integral 85.6 cm LVOT Peak Velocity 155.9 cm/s LVOT Peak Gradient 9.7 mmHg LVOT Velocity Time Integral 31.1 cm LVOT Stroke Volume 57.0 cm??? LVOT Stroke Volume Index 31.7 ml/m??? LVOT Cardiac Index 2631.3 cm???/min???m??? AV Area Cont Eq vti 0.7 cm??? AV Area Cont Eq pk 0.7 cm??? MV Peak Velocity 255.1 cm/s MV Peak Gradient 26.0 mmHg MV Mean Velocity 130.7 cm/s MV Mean Gradient 8.9 mmHg MV Velocity Time Integral 45.3 cm MV Area PHT 3.6 cm??? Mitral E Point Velocity 171.6 cm/s Mitral A Point Velocity 54.7 cm/s Mitral E to A Ratio 3.1 MV Deceleration Time 212.1 ms MV E' Velocity 6.5 cm/s Mitral E to MV E' Ratio 26.4 TR Peak Velocity 344.7 cm/s TR Peak Gradient 47.5 mmHg Right Atrial Pressure 15.0 mmHg Pulmonary Artery Systolic Pressu 62.5 mmHg Right Ventricular Systolic Press 52.5 mmHg FINDINGS Left Ventricle Moderately increased left ventricular wall thickness. Abnormal (paradoxical) septal motion consistent with postoperative state. Left ventricular ejection fraction is estimated at 50-55 %. Right Ventricle Right ventricle not well visualized. Moderate to severe pulmonary hypertension. Right Atrium Normal right atrial size. Left Atrium Severely increased left atrial volume. Mildly increased left atrial area. Mitral Valve Mitral valve thickened. Moderate mitral annular calcification. Mild mitral stenosis. Moderate mitral regurgitation. Aortic Valve Porcine aortic valve bioprosthesis. Gradient recorded across the prosthetic aortic valve above the expected range. Prosthetic aortic valve stenosis. [id number] aortic stenosis with a peak gradient of 65 mmHg and a mean gradient of 39 mmHg. Tricuspid Valve Structurally normal tricuspid valve. Moderate tricuspid regurgitation. Pulmonic Valve Trace pulmonic regurgitation. Pericardium No pericardial effusion. Aorta Normal size aortic root and proximal ascending aorta. CONCLUSIONS Normal left ventricular dimension and systolic function Bioprosthetic aortic valve with a mean gradient of almost 40 mmHg Previewed by: Dr. Gui Patel MD (Electronically Signed) Final Date: 17 April 2022 12:36
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
--- NOTE | 2022-04-17 14:58 | P.PN ---
Progress Note - Text Progress Note Date: 04/17/22 Hospitalist Interval Note Patient seen and examined at bedside. Vital signs reviewed General: non toxic, no distress, appears at stated age Derm: warm, dry Head: atraumatic, normocephalic, symmetric Eyes: EOMI, no lid lag, anicteric sclera Mouth: no lip lesion, mucus membranes moist Cardiovascular: S1S2 reg, no murmur Lungs: Bilateral rales, no accessory muscle use, supplemental oxygen Abdominal: soft, nontender to palpation, no guarding, no appreciable organomegaly Ext: no gross muscle atrophy, no edema, no contractures Neuro: CN II-XI grossly intact, no focal neuro deficits Psych: Alert, oriented, appropriate affect Assessment/Plan: Acute hypoxic respiratory failure Atypical pneumonia Possible lymphangitic metastatic disease Possible CHF exacerbation -Pulmonary consult -IV antibiotics -Echocardiogram This is an update note for patient , for full note on 04/17/22 at 5:09. There is no charge associated with this note.
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
[2022-04-17] MEDS ORDERED: FLUTICASONE 50MCG/SPRAY NASAL 16GM EA NOSTRIL PRN (15:03)
[2022-04-17] MEDS ORDERED: hydrALAZINE HCL 25 MG TAB PO SCH (16:00)
[2022-04-17] MEDS ORDERED: FUROSEMIDE 10 MG/ML 4 ML VIAL IV STA (19:45)
[2022-04-17] MEDS: METOPROLOL TARTRATE 25 MG TAB PO SCH (20:49)
[2022-04-17] MEDS: APIXABAN 5 MG TAB PO SCH (20:49)
[2022-04-18] MEDS: SODIUM CHLORIDE 0.9% 1,000 ML IV SCH (03:08)
[2022-04-18] MEDS: LEVOTHYROXINE 50 MCG TAB PO SCH (06:23)
--- NOTE | 2022-04-18 07:18 | XR ---
EXAMINATION TYPE: XR chest 1V portable DATE OF EXAM: 04/18/2022 CLINICAL HISTORY: Difficulty breathing and pneumonia progress study. TECHNIQUE: Single AP portable upright view of the chest is obtained. COMPARISON: Chest x-ray from 2 days earlier FINDINGS: Overlying sternal wires are redemonstrated. Surgical change to left clavicle again seen. P ersistent cardiomegaly. Persistent but improved bilateral central increased opacities. Surgical clips right axillary region redemonstrated. Old healed fractures of the posterior lateral left fourth thro ugh 10th ribs redemonstrated. IMPRESSION: Improving but persistent bilateral edema and/or infiltrates.
[2022-04-18] MEDS: ALBUTEROL NEBULIZED 2.5 MG/3 ML INHALATION PRN ×4 (08:25→19:28)
[2022-04-18 08:28] LABS: Basophils % (A) 0 %; Eosinophils % (A) 0 %; HCT 31.4 % (39.0-53.0); HGB 10.2 gm/dL (13.0-17.5); Lymphocytes % (A) 7 %; MCH 30.5 pg (25.0-35.0); MCHC 32.6 g/dL (31.0-37.0); MCV 93.5 fL (80.0-100.0); Mean Platelet Volume 8.4; Monocytes # (A) 0.7 k/uL (0-1.0); Monocytes % (A) 5 %; Neutrophils # (A) 11.8 k/uL (1.3-7.7); Neutrophils % (A) 86 %; Platelet Count 217 k/uL (150-450); RBC 3.36 m/uL (4.30-5.90); WBC 13.8 k/uL (3.8-10.6)
[2022-04-18 08:29] LABS: Calcium 9.1 mg/dL (8.4-10.2); Magnesium 2.4 mg/dL (1.6-2.3); Phosphorus 4.8 mg/dL (2.5-4.5); Potassium 4.5 mmol/L (3.5-5.1); Total Bilirubin 0.6 mg/dL (0.2-1.3); Total Protein 6.8 g/dL (6.3-8.2)
[2022-04-18] MEDS: LORATADINE 10 MG TAB PO SCH (08:33)
[2022-04-18] MEDS: AZITHROMYCIN 250 MG TAB PO SCH (08:33)
[2022-04-18] MEDS: APIXABAN 5 MG TAB PO SCH ×2 (08:33→20:48)
[2022-04-18] MEDS: ATORVASTATIN 20 MG TAB PO SCH (08:33)
[2022-04-18] MEDS: CYANOCOBALAMIN 500 MCG TAB PO SCH (08:33)
[2022-04-18] MEDS: TORSEMIDE 20 MG TAB PO SCH (08:33)
[2022-04-18] MEDS: DULoxetine HCL 30 MG CAPSULE.DR PO SCH (08:33)
[2022-04-18] MEDS: METOPROLOL TARTRATE 25 MG TAB PO SCH ×2 (08:33→20:47)
[2022-04-18] MEDS: ASPIRIN 81 MG PO SCH (08:33)
[2022-04-18] MEDS: PANTOPRAZOLE 40 MG/10 ML VIAL IV SCH (08:34)
[2022-04-18] MEDS ORDERED: FUROSEMIDE 40 MG TAB PO SCH (09:00)
[2022-04-18] MEDS ORDERED: amLODIPine 10 MG TAB PO SCH (09:00)
[2022-04-18] MEDS ORDERED: NON FORMULARY DRUG (Omega-3 Fatty Acids/Fish Oil [Fish Oil 1,000 Mg Softgel] 1 EACH Capsul PO SCH (09:00)
--- NOTE | 2022-04-18 11:12 | P.PN ---
Subjective Progress Note Date: 04/18/22 Principal diagnosis: SOB Hospital Course: 77-year-old male with history of bioprosthetic aortic valve replacement, atrial fibrillation, melanoma, hypertension, dyslipidemia presented for gradually worsening shortness of breath. Chest x-ray on admission showed patchy infiltrates suspicious for pneumonia versus possible lymphangitic metastatic disease. Patient also had leukocytosis and elevated BNP, elevated troponin. He was hypoxic on room air, required supplemental oxygen and BiPAP. Patient evaluated by cardiology and pulmonology. Subjective: Patient seen and examined at bedside. No acute events overnight. He claims that his shortness of breath is still persistent, and may have minimally improved. He denies any chest pain, abdominal pain, diarrhea, constipation, urinary issues. Pertinent positives and negatives as discussed above, a complete review of systems was performed and all other systems are negative. Vitals Signs Reviewed. eneral: non toxic, no distress, appears at stated age Derm: warm, dry Head: atraumatic, normocephalic, symmetric Eyes: EOMI, no lid lag, anicteric sclera Mouth: no lip lesion, mucus membranes moist Cardiovascular: S1S2 reg, no murmur Lungs: Bilateral rales, no accessory muscle use, supplemental oxygen Abdominal: soft, nontender to palpation, no guarding, no appreciable organomegaly Ext: no gross muscle atrophy, no edema, no contractures Neuro: CN II-XI grossly intact, no focal neuro deficits Psych: Alert, oriented, appropriate affect Assessment and Plan: Acute hypoxic respiratory failure Atypical pneumonia Possible lymphangitic metastatic spread Diastolic heart failure exacerbation -Pro calcitonin elevated -Continue azithromycin and ceftriaxone -Chest x-ray from this morning improving -Leukocytosis improvement -Blood cultures no growth to date -Status post IV diuretics, started on torsemide per cardiology -Both pulmonology and cardiology: Elevated troponin -Likely type II in the setting of demand ischemia Chronic kidney disease -Continue to monitor creatinine and urine output given diuretics Chronic medical conditions: Atrial fibrillation Hypertension Dyslipidemia History of melanoma -Continue home medications DVT ppx: eliquis Code status: Full code Anticipated discharge place: Home Anticipated discharge time: 2-3 days Objective - Vital Signs Vital signs: Vital Signs Temp 98.1 F 04/18/22 04:00 Pulse 100 04/18/22 08:39 Resp 21 04/18/22 08:36 BP 123/63 04/18/22 08:36 Pulse Ox 97 04/18/22 08:36 FiO2 36 04/18/22 04:43 Intake & Output 04/17/22 04/18/22 04/18/22 18:59 06:59 18:59 Intake Total 368 10 118 Output Total 1300 Balance 368 -1290 118 Weight 78.7 kg Intake: IV 10 Invasive Line 1 10 Oral 368 118 Output: Urine 1300 Other: Voiding Method Toilet Toilet Urinal - Labs CBC & Chem 7: 04/18/22 07:54 04/18/22 07:54 Labs: Abnormal Lab Results - Last 24 Hours (Table) 04/17/22 04/17/22 04/18/22 Range/Units 08:44 11: 07:54 WBC 13.8 H (3.8-10.6) k/uL RBC 3.36 L (4.30-5.90) m/uL Hgb 10.2 L (13.0-17.5) gm/dL Hct 31.4 L (39.0-53.0) % Neutrophils # 11.8 H (1.3-7.7) k/uL Chloride (98-107) mmol/L BUN (9-20) mg/dL Creatinine (0.66-1.25) mg/dL Glucose (74-99) mg/dL Phosphorus (2.5-4.5) mg/dL Magnesium (1.6-2.3) mg/dL Troponin I 0.114 H* (0.000-0.034) ng/mL Procalcitonin 4.32 H (0.02-0.09) ng/mL 04/18/22 Range/Units 07:54 WBC (3.8-10.6) k/uL RBC (4.30-5.90) m/uL Hgb (13.0-17.5) gm/dL Hct (39.0-53.0) % Neutrophils # (1.3-7.7) k/uL Chloride 110 H (98-107) mmol/L BUN 55 H (9-20) mg/dL Creatinine 2.16 H (0.66-1.25) mg/dL Glucose 164 H (74-99) mg/dL Phosphorus 4.8 H (2.5-4.5) mg/dL Magnesium 2.4 H (1.6-2.3) mg/dL Troponin I (0.000-0.034) ng/mL Procalcitonin (0.02-0.09) ng/mL Microbiology - Last 24 Hours (Table) 04/17/22 00:30 Blood Culture - Preliminary Blood No Growth after 24 hours 04/17/22 00:45 Blood Culture - Preliminary Blood No Growth after 24 hours
--- NOTE | 2022-04-18 13:25 | P.PN ---
Subjective This is a pleasant 77 -year-old male past medical history significant for persistent atrial fibrillation s/p ablation, bicuspid aortic valve s/p biop rosthetic AV replacement in 2003, hypertension, dyslipidemia, ascending aortic aneurysm, chronic heart failure with preserved ejection fraction, melanoma undergoing chemotherapy (Last chemo about 1-2 months ago), former tobacco use. He follows in the office with Dr. Peterson. We have been asked to see in consultation for dyspnea. Patient presents to the ER with shortness of breath. He states Saturday, he noticed more shortness of breath with activity, but was tolerable and subsided. Yesterday, he felt well in the morning, went to his doctors appointments and grocery shopping, and by the time he got home he felt progressively more short of breath. He states he could not catch his breath. He tried his CPAP machine and placed oxygen on. His breathing was not getting any better and called EMS to get evaluated in the ER. He has noticed symptoms of non-productive cough, congestion and chills at home. DIAGNOSTICS * Echocardiogram revealed EF 5055 %, moderate severe pulmonary hypertension with an RVSP of 52 mmHg, progressively aortic valve stenosis, moderate to severe aortic stenosis with a peak gradient of 65 mmHg, mean gradient 39 mmHg, moderate mitral regurgitation 04/18/2022 Patient seen and examined at bedside, no acute distress. Patient had some shortness of breath overnight was given IV Lasix 40mg x1, no significant improvement. Blood pressure 139/67, heart rate 81 Labs, sodium 140, potassium 4.5, BUN 55, serum creatinine 2.16, magnesium 2.4 PHYSICAL EXAMINATION Blood pressure CONSTITUTIONAL: No apparent distress. HEENT: Head is normocephalic.No JVD. CHEST EXAMINATION: Lungs are rhonchi bilaterally No chest wall tenderness is noted on palpation or with deep breathing. HEART EXAMINATION: Regular rate and rhythm. S1, S2 heard. Systolic murmur at base and apex, No gallops or rub. ABDOMEN: Soft, nontender. Positive bowel sounds. EXTREMITIES: 2+ peripheral pulses, no lower extremity edema and no calf tenderness. NEUROLOGIC EXAMINATION: Patient is awake, alert and oriented x3. ASSESSMENT Shortness of breath, likely related to pneumonia, does not appear to be in acute heart failure on exam Elevated troponin, likely type II [place] secondary to demand ischemia Pneumonia Persistent atrial fibrillation s/p ablation History of bicuspid aortic valve s/p bioprosthetic AV replacement in 2003 Moderate to severe aortic stenosis Hypertension Dyslipidemia History of ascending aortic aneurysm Chronic heart failure with preserved ejection fraction History of melanoma undergoing chemotherapy (Last chemo about 1-2 months ago) Former tobacco use PLAN Patient's shortness of breath appears to be more pneumonia than congestive heart failure. Chest xray with right lobe pneumonia. Caution with IV Lasix and assess as needed. Consider CT chest if pneumonia/ infiltrate needs to be further evaluated. Elevated CRP, procalcitonin consistent with pneumonia. Continue home cardiac medications Pulmonary following Continue pneumonia treatment Further recommendations based on clinical course Recommend close follow up outpatient once recovered from infection for aortic valve and stress test scheduled as an outpatient Nurse practitioner note has been reviewed by physician. Signing provider agrees with the documented findings, assessment, and plan of care. Objective - Vital Signs Vital signs: Vital Signs Temp 98.1 F 04/18/22 04:00 Pulse 100 04/18/22 08:39 Resp 21 04/18/22 08:36 BP 123/63 04/18/22 08:36 Pulse Ox 97 04/18/22 08:36 FiO2 36 04/18/22 04:43 Intake & Output 04/17/22 04/18/22 04/18/22 18:59 06:59 18:59 Intake Total 368 10 118 Output Total 1300 Balance 368 -1290 118 Weight 78.7 kg Intake: IV 10 Invasive Line 1 10 Oral 368 118 Output: Urine 1300 Other: Voiding Method Toilet Toilet Urinal - Labs CBC & Chem 7: 04/18/22 07:54 04/18/22 07:54 Labs: Abnormal Lab Results - Last 24 Hours (Table) 04/17/22 04/17/22 04/17/22 Range/Units 08:44 08:44 11:22 WBC (3.8-10.6) k/uL RBC (4.30-5.90) m/uL Hgb (13.0-17.5) gm/dL Hct (39.0-53.0) % Neutrophils # (1.3-7.7) k/uL Chloride (98-107) mmol/L BUN (9-20) mg/dL Creatinine (0.66-1.25) mg/dL Glucose (74-99) mg/dL Phosphorus (2.5-4.5) mg/dL Magnesium (1.6-2.3) mg/dL Troponin I 0.124 H* 0.114 H* (0.000-0.034) ng/mL Procalcitonin 4.32 H (0.02-0.09) ng/mL 04/18/22 04/18/22 Range/Units 07:54 07:54 WBC 13.8 H (3.8-10.6) k/uL RBC 3.36 L (4.30-5.90) m/uL Hgb 10.2 L (13.0-17.5) gm/dL Hct 31.4 L (39.0-53.0) % Neutrophils # 11.8 H (1.3-7.7) k/uL Chloride 110 H (98-107) mmol/L BUN 55 H (9-20) mg/dL Creatinine 2.16 H (0.66-1.25) mg/dL Glucose 164 H (74-99) mg/dL Phosphorus 4.8 H (2.5-4.5) mg/dL Magnesium 2.4 H (1.6-2.3) mg/dL Troponin I (0.000-0.034) ng/mL Procalcitonin (0.02-0.09) ng/mL Microbiology - Last 24 Hours (Table) 04/17/22 00:30 Blood Culture - Preliminary Blood No Growth after 24 hours 04/17/22 00:45 Blood Culture - Preliminary Blood No Growth after 24 hours
--- NOTE | 2022-04-18 14:28 | P.PN ---
Subjective Progress Note Date: 04/18/22 Principal diagnosis: Acute community-acquired pneumonia and underlying congestive heart failure This is a 77-year-old white male, known history of bicuspid aortic valve, and had previous bioprosthetic aortic valve replacement in 2003. Patient is also known to have history of ascending aortic aneurysm, chronic congestive heart failure with preserved ejection fraction. History of melanoma receiving chemotherapy. Patient is receiving chemotherapy at the [facility] in [place]. Normally the patient sees Dr. Peterson as his ux interaction designer, he is to see Dr. Lofton in the past. Patient presented to the ER with only 2 days history of increased shortness of breath on exertion. No cough no fever but he definitely had chills and could not keep himself warm apparently the night prior to admission. His shortness of breath has been progressively getting worse. Patient was brought in to the ER, and his chest x-ray was quite abnormal showing interstitial edema, possible underlying pneumonia. Patient was admitted, started empirically on antibiotics in the form of Rocephin and Zithromax, he was also given diuretics. Surprisingly the patient is feeling better overnight. And that makes me think of possibility of congestive heart failure. His pro-calcitonin level is pending and I am continuing his antibiotics empirically. Patient did not have the classic symptoms of pneumonia except the chills, no cough, and no fever documented. And his shortness of breath was rather sudden. No chest pain, no palpitations, patient is known to have history of aortic stenosis, moderately severe. Echocardiogram on this admission showed progressive moderate to severe aortic stenosis and moderate mitral regurgitation. Labs on admission did show evidence of leukocytosis with WBC count of 18.9, electrolytes are normal creatinine is 1.56, BNP is a bit elevated. And he tested negative for influenza A and influenza B and COVID-19 PCR was also negative. RSV was negative Patient was reevaluated today on 04/18/22, clinically the patient feels much better breathing a lot easier and his chest x-ray showed dramatic improvement basically overnight. Of course his infiltrates did not fully resolve, but that is at least 50% improvement in his bilateral interstitial edema/infiltrates. This alone speaks in favor of significant component of congestive heart failure, however underlying pneumonia is still very likely considering the patient has elevated pro calcitonin level, and the right midlung infiltrate is truly suspicious for infection. Again can't ignore that dramatic improvement overnight with diuresis. Never seen pneumonia improve overnight as such. At any rate the patient should remain on antibiotics and should remain on diuretics. Continue to monitor clinically and continue to monitor chest x-rays. Continue to monitor urine output and eyes and nose as well as daily weights. Objective - Vital Signs Vital signs: Vital Signs Temp 98.1 F 04/18/22 04:00 Pulse 84 04/18/22 12:13 Resp 22 04/18/22 12:02 BP 139/67 04/18/22 12:02 Pulse Ox 99 04/18/22 12:02 FiO2 36 04/18/22 04:43 Intake & Output 04/17/22 04/18/22 04/18/22 18:59 06:59 18:59 Intake Total 368 10 118 Output Total 1300 Balance 368 -1290 118 Weight 78.7 kg Intake: IV 10 Invasive Line 1 10 Oral 368 118 Output: Urine 1300 Other: Voiding Method Toilet Toilet Toilet Urinal Urinal - Exam Physical Exam: Revealed 77-year-old white male, pleasant, in no distress, again the patient felt better basically overnight. He is on 4 L nasal cannula and O2 sats is 94% Head: Atraumatic, normocephalic. HEENT:[Neck is supple.] [No neck masses.] [No thyromegaly.] [No JVD.] Chest: Fine crackles at the bases, no rhonchi no wheezes. Cardiac Exam: Normal S1 and S2, 2/6 systolic murmur over the lower sternal border, and 3/6 systolic murmur right over the right parasternal area over the aortic area. Abdomen: [Soft, nontender, no megaly, no rebound, no guarding, normal bowel sounds.] Extremities: [No clubbing, no edema, no cyanosis.] Neurological Exam: [No focal neurologic deficit. Alert oriented 3 Psychiatric: Normal mood, affect and normal mental status examination. Skin: No rashes] - Labs CBC & Chem 7: 04/18/22 07:54 04/18/22 07:54 Labs: Abnormal Lab Results - Last 24 Hours (Table) 04/17/22 04/18/22 04/18/22 Range/Units 08:44 07:54 07:54 WBC 13.8 H (3.8-10.6) k/uL RBC 3.36 L (4.30-5.90) m/uL Hgb 10.2 L (13.0-17.5) gm/dL Hct 31.4 L (39.0-53.0) % Neutrophils # 11.8 H (1.3-7.7) k/uL Chloride 110 H (98-107) mmol/L BUN 55 H (9-20) mg/dL Creatinine 2.16 H (0.66-1.25) mg/dL Glucose 164 H (74-99) mg/dL Phosphorus 4.8 H (2.5-4.5) mg/dL Magnesium 2.4 H (1.6-2.3) mg/dL Procalcitonin 4.32 H (0.02-0.09) ng/mL Microbiology - Last 24 Hours (Table) 04/17/22 00:30 Blood Culture - Preliminary Blood No Growth after 24 hours 04/17/22 00:45 Blood Culture - Preliminary Blood No Growth after 24 hours Assessment and Plan Assessment: Impression: Acute hypoxic respiratory failure secondary strongly suspect acute diastolic congestive heart failure and underlying pneumonia. Can't ignore dramatic improvement of chest x-ray basically overnight which speaks in favor of congestive heart failure and definitely cannot ignore elevated pro calcitonin level, which speaks in favor of pneumonia. Hence I'm recommending we continue antibiotics and diuretics at the same time. And continue to monitor electrolytes, renal profile, weights, I's and O's, and x-rays of the chest at least every other day basis Moderate severe aortic stenosis, patient has progressive aortic stenosis of bioprosthetic valve placed in 2003. And he had previous history of bicuspid aortic valve. Mitral regurgitation. Chronic atrial fibrillation. History of ascending aortic aneurysm. Chronic congestive heart failure/diastolic in nature. History of recently diagnosed melanoma, on chemotherapy. Ex-smoker. Recommendation: Continue antibiotics and diuretics Noted the dramatic improvement of chest x-ray overnight Noted the elevated pro calcitonin level Noted the clinical improvement overnight Continue GI and DVT prophylaxis We will continue to follow Time with Patient: Less than 30
[2022-04-18 20:00] LABS: Glucose,Whole Blood 123 mg/dL (70-110)
[2022-04-18] MEDS ORDERED: ACETAMINOPHEN TAB 325 MG TAB PO PRN (20:37)
[2022-04-18] MEDS ORDERED: FUROSEMIDE 10 MG/ML 10 ML VIAL IV STA (22:58)
--- NOTE | 2022-04-18 23:51 | XR ---
EXAMINATION TYPE: XR chest 1V portable DATE OF EXAM: 04/18/2022 COMPARISON: Today HISTORY: Short of breath TECHNIQUE: FINDINGS: There is bilateral pulmonary interstitial and airspace edema. There are sternal wires. Ther e is a plate fixating the left clavicle. No pleural effusion. There are chest leads. IMPRESSION: There is pulmonary airspace and interstitial edema which is slightly worse than exam this morning. This could be RDS. No pleural fluid seen to suggest heart failure.
[2022-04-19] MEDS: SODIUM CHLORIDE 0.9% 1,000 ML IV SCH (02:37)
[2022-04-19] MEDS: LEVOTHYROXINE 50 MCG TAB PO SCH (06:21)
[2022-04-19] MEDS: PANTOPRAZOLE 40 MG TABLET PO SCH (06:21)
--- NOTE | 2022-04-19 07:34 | XR ---
EXAMINATION TYPE: XR chest 1V portable DATE OF EXAM: 04/19/2022 COMPARISON: 04/18/2022 INDICATION: Pneumonia CHF TECHNIQUE: Single frontal view of the chest is obtained. FINDINGS: The heart size is mildly prominent. The pulmonary vasculature is prominent. Diffuse increase lung markings are present bilaterally. Findings are stable. Correlate for congestive heart failure. Prior left clavicular fracture repair is evident. IMPRESSION: 1. Stable perihilar infiltrates suggestive for pulmonary edema. Correlate for congestive heart failur e
[2022-04-19] MEDS: ALBUTEROL NEBULIZED 2.5 MG/3 ML INHALATION PRN ×4 (07:43→20:29)
[2022-04-19] MEDS: TORSEMIDE 20 MG TAB PO SCH (07:49)
[2022-04-19] MEDS: APIXABAN 5 MG TAB PO SCH ×2 (07:49→20:40)
[2022-04-19] MEDS: DULoxetine HCL 30 MG CAPSULE.DR PO SCH (07:50)
[2022-04-19] MEDS: AZITHROMYCIN 250 MG TAB PO SCH (07:50)
[2022-04-19] MEDS: CYANOCOBALAMIN 500 MCG TAB PO SCH (07:50)
[2022-04-19] MEDS: METOPROLOL TARTRATE 25 MG TAB PO SCH ×2 (07:50→20:40)
[2022-04-19] MEDS: ASPIRIN 81 MG PO SCH (07:50)
[2022-04-19] MEDS: LORATADINE 10 MG TAB PO SCH (07:50)
[2022-04-19] MEDS: ATORVASTATIN 20 MG TAB PO SCH (07:51)
[2022-04-19 08:46] LABS: Basophils % (A) 0 %; Calcium 8.8 mg/dL (8.4-10.2); Eosinophils % (A) 0 %; HCT 29.3 % (39.0-53.0); Lymphocytes # (A) 1.5 k/uL (1.0-4.8); Lymphocytes % (A) 10 %; MCH 31.6 pg (25.0-35.0); MCV 93.1 fL (80.0-100.0); Mean Platelet Volume 8.5; Monocytes # (A) 1.7 k/uL (0-1.0); Monocytes % (A) 11 %; Neutrophils # (A) 11.6 k/uL (1.3-7.7); Neutrophils % (A) 77 %; Platelet Count 195 k/uL (150-450); Potassium 4.2 mmol/L (3.5-5.1); RBC 3.15 m/uL (4.30-5.90); WBC 15.1 k/uL (3.8-10.6)
--- NOTE | 2022-04-19 09:45 | P.PN ---
Subjective This is a pleasant 77 -year-old male past medical history significant for persistent atrial fibrillation s/p ablation, bicuspid aortic valve s/p bio prosthetic AV replacement in 2003, hypertension, dyslipidemia, ascending aortic aneurysm, chronic heart failure with preserved ejection fraction, melanoma undergoing chemotherapy (Last chemo about 1-2 months ago), former tobacco use. He follows in the office with Dr. Peterson. We have been asked to see in consultation for dyspnea. Patient presents to the ER with shortness of breath. He states Saturday, he noticed more shortness of breath with activity, but was tolerable and subsided. Yesterday, he felt well in the morning, went to his doctors appointments and grocery shopping, and by the time he got home he felt progressively more short of breath. He states he could not catch his breath. He tried his CPAP machine and placed oxygen on. His breathing was not getting any better and called EMS to get evaluated in the ER. He has noticed symptoms of non-productive cough, congestion and chills at home. DIAGNOSTICS * Echocardiogram revealed EF 5055 %, moderate severe pulmonary hypertension wit h an RVSP of 52 mmHg, progressively aortic valve stenosis, moderate to severe aortic stenosis with a peak gradient of 65 mmHg, mean gradient 39 mmHg, moderate mitral regurgitation 04/18/2022 Patient seen and examined at bedside, no acute distress. Patient had some shortness of breath overnight was given IV Lasix 40mg x1, no significant improvement. Blood pressure 139/67, heart rate 81 Labs, sodium 140, potassium 4.5, BUN 55, serum creatinine 2.16, magnesium 2.4 04/19 Patient seen and examined. Patient was placed on BiPAP overnight and still remains on at this morning feeling somewhat better on BiPAP. White blood cell count mildly increased to 15.1. He was changed his home dose of torsemide yesterday however not as much output with approximately -1 L and mild improvement in creatinine to 1.8. He has however had increased respiratory rate and still on BiPAP and therefore additional dose of Lasix was given overnight with -2 L output. PHYSICAL EXAMINATION Blood pressure CONSTITUTIONAL: No apparent distress. HEENT: Head is normocephalic.No JVD. CHEST EXAMINATION: Lungs are rhonchi bilaterally No chest wall tenderness is noted on palpation or with deep breathing. HEART EXAMINATION: Regular rate and rhythm. S1, S2 heard. Systolic murmur at base and apex, No gallops or rub. ABDOMEN: Soft, nontender. Positive bowel sounds. EXTREMITIES: 2+ peripheral pulses, no lower extremity edema and no calf tenderness. NEUROLOGIC EXAMINATION: Patient is awake, alert and oriented x3. ASSESSMENT Shortness of breath, likely multifactorial secondary to pneumonia as well as diastolic heart failure Elevated troponin, likely type II NH secondary to demand ischemia Pneumonia Persistent atrial fibrillation s/p ablation History of bicuspid aortic valve s/p bioprosthetic AV replacement in 2003 Moderate to severe aortic stenosis Hypertension Dyslipidemia History of ascending aortic aneurysm Acute on chronic heart failure with preserved ejection fraction History of melanoma undergoing chemotherapy (Last chemo about 1-2 months ago) Former tobacco use PLAN Patient with some worsened respiratory status with increased work of breathing and increased respiratory rate. He therefore was given additional dose of IV Lasix yesterday. We will give additional dose this morning and monitor response. Elevated pro-calcitonin with pneumonia however may still be some component of residual diastolic heart failure. Continue with diuretics and monitor kidney function closely. Objective - Vital Signs Vital signs: Vital Signs Temp 97.7 F 04/19/22 08:00 Pulse 93 04/19/22 08:00 Resp 26 H 04/19/22 08:00 BP 129/69 04/19/22 08:00 Pulse Ox 92 L 04/19/22 08:00 FiO2 50 04/19/22 04:30 Intake & Output 04/18/22 04/19/22 04/19/22 18:59 06:59 18:59 Intake Total 118 Output Total 2350 Balance 118 -2350 Weight 77.8 kg 76.6 kg Intake: Oral 118 Output: Urine 2350 Other: Voiding Method Toilet Urinal Urinal - Labs CBC & Chem 7: 04/19/22 07:06 04/19/22 07:06 Labs: Abnormal Lab Results - Last 24 Hours (Table) 04/18/22 04/19/22 04/19/22 Range/Units 19:58 07:06 07:06 WBC 15.1 H (3.8-10.6) k/uL RBC 3.15 L (4.30-5.90) m/uL Hgb 10.0 L (13.0-17.5) gm/dL Hct 29.3 L (39.0-53.0) % Neutrophils # 11.6 H (1.3-7.7) k/uL Monocytes # 1.7 H (0-1.0) k/uL BUN 60 H (9-20) mg/dL Creatinine 1.89 H (0.66-1.25) mg/dL POC Glucose (mg/dL) 123 H (70-110) mg/dL Microbiology - Last 24 Hours (Table) 04/17/22 00:45 Blood Culture - Preliminary Blood No Growth after 48 hours 04/17/22 00:30 Blood Culture - Preliminary Blood No Growth after 48 hours
--- NOTE | 2022-04-19 10:45 | P.PN ---
Subjective Progress Note Date: 04/19/22 Principal diagnosis: SOB Hospital Course: 77-year-old male with history of bioprosthetic aortic valve replacement, atrial fibrillation, melanoma, hypertension, dyslipidemia presented for gradually worsening shortness of breath. Chest x-ray on admission showed patchy infiltrates suspicious for pneumonia versus possible lymphangitic metastatic disease versus pulmonary edema. Patient also had leukocytosis and elevated BNP, elevated troponin. He was hypoxic on room air, required supplemental oxygen and BiPAP. Patient evaluated by cardiology and pulmonology. Patient currently on IV antibiotics and diuretics. Subjective: Patient seen and examined at bedside. Patient continuing to be hypoxic with exertion. He denies any chest pain, abdominal pain, diarrhea, constipation, urinary issues. Pertinent positives and negatives as discussed above, a complete review of systems was performed and all other systems are negative. Vitals Signs Reviewed. eneral: non toxic, no distress, appears at stated age Derm: warm, dry Head: atraumatic, normocephalic, symmetric Eyes: EOMI, no lid lag, anicteric sclera Mouth: no lip lesion, mucus membranes moist Cardiovascular: S1S2 reg, no murmur Lungs: Bilateral rales, no accessory muscle use, BiPAP Abdominal: soft, nontender to palpation, no guarding, no appreciable organomegaly Ext: no gross muscle atrophy, no edema, no contractures Neuro: CN II-XI grossly intact, no focal neuro deficits Psych: Alert, oriented, appropriate affect Assessment and Plan: Acute hypoxic respiratory failure Atypical pneumonia Possible lymphangitic metastatic spread Diastolic heart failure exacerbation -Pro calcitonin elevated -Continue azithromycin and ceftriaxone -Chest x-ray remains the same -Leukocytosis improvement -Blood cultures no growth to date -Echo showed normal LV systolic function, by prostatic aortic WITH moderate to severe aortic stenosis, moderate to severe pulmonary hypertension, moderate MR and TR -IV diuretics -Both pulmonology and cardiology following Elevated troponin -Likely type II in the setting of demand ischemia Chronic kidney disease -Continue to monitor creatinine and urine output given diuretics Chronic medical conditions: Atrial fibrillation Hypertension Dyslipidemia History of melanoma -Continue home medications DVT ppx: eliquis Code status: Full code Anticipated discharge place: Pending clinical course Anticipated discharge time: Pending clinical course Objective - Vital Signs Vital signs: Vital Signs Temp 97.7 F 04/19/22 08:00 Pulse 93 04/19/22 08:00 Resp 26 H 04/19/22 08:00 BP 129/69 04/19/22 08:00 Pulse Ox 92 L 04/19/22 08:00 FiO2 50 04/19/22 04:30 Intake & Output 04/18/22 04/19/22 04/19/22 18:59 06:59 18:59 Intake Total 118 Output Total 2350 400 Balance 118 -2350 -400 Weight 77.8 kg 76.6 kg Intake: Oral 118 Output: Urine 2350 400 Other: Voiding Method Toilet Urinal Urinal - Labs CBC & Chem 7: 04/19/22 07:06 04/19/22 07:06 Labs: Abnormal Lab Results - Last 24 Hours (Table) 04/18/22 04/19/22 04/19/22 Range/Units 19:58 07:06 07:06 WBC 15.1 H (3.8-10.6) k/uL RBC 3.15 L (4.30-5.90) m/uL Hgb 10.0 L (13.0-17.5) gm/dL Hct 29.3 L (39.0-53.0) % Neutrophils # 11.6 H (1.3-7.7) k/uL Monocytes # 1.7 H (0-1.0) k/uL BUN 60 H (9-20) mg/dL Creatinine 1.89 H (0.66-1.25) mg/dL POC Glucose (mg/dL) 123 H (70-110) mg/dL Microbiology - Last 24 Hours (Table) 04/17/22 00:45 Blood Culture - Preliminary Blood No Growth after 48 hours 04/17/22 00:30 Blood Culture - Preliminary Blood No Growth after 48 hours
[2022-04-19] MEDS: FUROSEMIDE 10 MG/ML 10 ML VIAL IV SCH (10:46)
--- NOTE | 2022-04-19 13:12 | P.PN ---
Subjective Progress Note Date: 04/19/22 Principal diagnosis: Acute community-acquired pneumonia and underlying congestive heart failure This is a 77-year-old white male, known history of bicuspid aortic valve, and had previous bioprosthetic aortic valve replacement in 2003. Patient is also known to have history of ascending aortic aneurysm, chronic congestive heart failure with preserved ejection fraction. History of melanoma receiving chemotherapy. Patient is receiving chemotherapy at the [facility] in [place]. 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 Lofton in the past. Patient presented to the ER with only 2 days history of increased shortness of breath on exertion. No cough no fever but he definitely had chills and could not keep himself warm apparently the night prior to admission. His shortness of breath has been progressively getting worse. Patient was brought in to the ER, and his chest x-ray was quite abnormal showing interstitial edema, possible underlying pneumonia. Patient was admitted, started empirically on antibiotics in the form of Rocephin and Zithromax, he was also given diuretics. Surprisingly the patient is feeling better overnight. And that makes me think of possibility of congestive heart failure. His pro-calcitonin level is pending and I am continuing his antibiotics empirically. Patient did not have the classic symptoms of pneumonia except the chills, no cough, and no fever documented. And his shortness of breath was rather sudden. No chest pain, no palpitations, patient is known to have history of aortic stenosis, moderately severe. Echocardiogram on this admission showed progressive moderate to severe aortic stenosis and moderate mitral regurgitation. Labs on admission did show evidence of leukocytosis with WBC count of 18.9, electrolytes are normal creatinine is 1.56, BNP is a bit elevated. And he tested negative for influenza A and influenza B and COVID-19 PCR was also negative. RSV was negative Patient was reevaluated today on 04/18/22, clinically the patient feels much better breathing a lot easier and his chest x-ray showed dramatic improvement basically overnight. Of course his infiltrates did not fully resolve, but that is at least 50% improvement in his bilateral interstitial edema/infiltrates. This alone speaks in favor of significant component of congestive heart failure, however underlying pneumonia is still very likely considering the patient has elevated pro calcitonin level, and the right midlung infiltrate is truly suspicious for infection. Again can't ignore that dramatic improvement overnight with diuresis. Never seen pneumonia improve overnight as such. At any rate the patient should remain on antibiotics and should remain on diuretics. Continue to monitor clinically and continue to monitor chest x-rays. Continue to monitor urine output and eyes and nose as well as daily weights. He should was reevaluated today on 04/19/22, patient developed worsening pulmonary status overnight, he desaturated, required placement on BiPAP, and he remains on BiPAP 03/14 FiO2 of 40%. Earlier today he was placed on 6 L nasal cannula but he desaturated and felt better on BiPAP, when I saw him the patient was on BiPAP. Patient was placed on Lasix 80 mg IV push daily maintenance, and he is now off Demadex. WBC count today is 15.1 electrolytes are normal BUN is 60 creatinine is 1.89, actually better today compared to yesterday, in spite of diuretics Objective - Vital Signs Vital signs: Vital Signs Temp 98.0 F 04/19/22 12:00 Pulse 95 04/19/22 12:00 Resp 22 04/19/22 12:00 BP 136/65 04/19/22 12:00 Pulse Ox 91 L 04/19/22 12:00 FiO2 50 04/19/22 04:30 Intake & Output 04/18/22 04/19/22 04/19/22 18:59 06:59 18:59 Intake Total 118 Output Total 2350 800 Balance 118 -2350 -800 Weight 77.8 kg 76.6 kg Intake: Oral 118 Output: Urine 2350 800 Other: Voiding Method Toilet Urinal Urinal Urinal - Exam Physical Exam: Revealed 77-year-old white male, pleasant, on BiPAP. Head: Atraumatic, normocephalic. HEENT:[Neck is supple.] [No neck masses.] [No thyromegaly.] [No JVD.] Chest: Continues to have fine crackles bilaterally Cardiac Exam: Normal S1 and S2, 2/6 systolic murmur over the lower sternal border, and 3/6 systolic murmur right over the right parasternal area over the aortic area. Abdomen: [Soft, nontender, no megaly, no rebound, no guarding, normal bowel sounds.] Extremities: [No clubbing, no edema, no cyanosis.] Neurological Exam: [No focal neurologic deficit. Alert oriented 3 Psychiatric: Normal mood, affect and normal mental status examination. Skin: No rashes] - Labs CBC & Chem 7: 04/19/22 07:06 04/19/22 07:06 Labs: Abnormal Lab Results - Last 24 Hours (Table) 04/18/22 04/19/22 04/19/22 Range/Units 19:58 07:06 07:06 WBC 15.1 H (3.8-10.6) k/uL RBC 3.15 L (4.30-5.90) m/uL Hgb 10.0 L (13.0-17.5) gm/dL Hct 29.3 L (39.0-53.0) % Neutrophils # 11.6 H (1.3-7.7) k/uL Monocytes # 1.7 H (0-1.0) k/uL BUN 60 H (9-20) mg/dL Creatinine 1.89 H (0.66-1.25) mg/dL POC Glucose (mg/dL) 123 H (70-110) mg/dL Microbiology - Last 24 Hours (Table) 04/17/22 00:45 Blood Culture - Preliminary Blood No Growth after 48 hours 04/17/22 00:30 Blood Culture - Preliminary Blood No Growth after 48 hours Assessment and Plan Assessment: Impression: Acute hypoxic respiratory failure secondary strongly suspect acute diastolic congestive heart failure and underlying pneumonia. Can't ignore dramatic improvement of chest x-ray basically overnight which speaks in favor of congestive heart failure and definitely cannot ignore elevated pro calcitonin level, which speaks in favor of pneumonia. Hence I'm recommending we continue antibiotics and diuretics at the same time. And continue to monitor electrolytes, renal profile, weights, I's and O's, and x-rays of the chest at least every other day basis Moderate severe aortic stenosis, patient has progressive aortic stenosis of bioprosthetic valve placed in 2003. And he had previous history of bicuspid aortic valve. Mitral regurgitation. Chronic atrial fibrillation. History of ascending aortic aneurysm. Chronic congestive heart failure/diastolic in nature. History of recently diagnosed melanoma, on chemotherapy. Ex-smoker. Recommendation: Continue antibiotics and diuretics Chest x-ray was reviewed today, again hard to tell how much of the findings are in CHF related to much of it is pneumonia related, nonetheless the chest x-ray is better now than what it was on admission Continue GI and DVT prophylaxis We will continue to follow Time with Patient: Less than 30
[2022-04-19 20:12] LABS: Glucose,Whole Blood 103 mg/dL (70-110)
[2022-04-20] MEDS: PANTOPRAZOLE 40 MG TABLET PO SCH (06:38)
[2022-04-20] MEDS: LEVOTHYROXINE 50 MCG TAB PO SCH (06:38)
[2022-04-20] MEDS: ALBUTEROL NEBULIZED 2.5 MG/3 ML INHALATION PRN ×2 (07:50→11:33)
[2022-04-20 08:22] LABS: Basophils % (A) 0 %; Eosinophils # (A) 0.1 k/uL (0-0.7); Eosinophils % (A) 1 %; Lymphocytes # (A) 1.9 k/uL (1.0-4.8); Lymphocytes % (A) 20 %; MCH 32.1 pg (25.0-35.0); MCHC 34.4 g/dL (31.0-37.0); MCV 93.3 fL (80.0-100.0); Monocytes # (A) 0.9 k/uL (0-1.0); Monocytes % (A) 9 %; Neutrophils # (A) 6.1 k/uL (1.3-7.7); Neutrophils % (A) 67 %; Platelet Count 212 k/uL (150-450); RBC 3.11 m/uL (4.30-5.90); RDW 13.5 % (11.5-15.5); WBC 9.1 k/uL (3.8-10.6)
[2022-04-20] MEDS: CYANOCOBALAMIN 500 MCG TAB PO SCH (08:26)
[2022-04-20] MEDS: FUROSEMIDE 10 MG/ML 10 ML VIAL IV SCH (08:26)
[2022-04-20] MEDS: ATORVASTATIN 20 MG TAB PO SCH (08:26)
[2022-04-20] MEDS: LORATADINE 10 MG TAB PO SCH (08:26)
[2022-04-20] MEDS: APIXABAN 5 MG TAB PO SCH ×2 (08:26→21:14)
[2022-04-20] MEDS: METOPROLOL TARTRATE 25 MG TAB PO SCH ×2 (08:27→21:14)
[2022-04-20] MEDS: DULoxetine HCL 30 MG CAPSULE.DR PO SCH (08:27)
[2022-04-20] MEDS: ASPIRIN 81 MG PO SCH (08:27)
[2022-04-20 08:36] LABS: Calcium 8.8 mg/dL (8.4-10.2); Magnesium 2.3 mg/dL (1.6-2.3); Potassium 3.6 mmol/L (3.5-5.1)
--- NOTE | 2022-04-20 10:13 | P.PN ---
Subjective Progress Note Date: 04/20/22 Principal diagnosis: SOB Hospital Course: 77-year-old male with history of bioprosthetic aortic valve replacement, atrial fibrillation, melanoma, hypertension, dyslipidemia presented for gradually worsening shortness of breath. Chest x-ray on admission showed patchy infiltrates suspicious for pneumonia versus possible lymphangitic metastatic disease versus pulmonary edema. Patient also had leukocytosis and elevated BNP, elevated troponin. He was hypoxic on room air, required supplemental oxygen and BiPAP. Patient evaluated by cardiology and pulmonology. Patient currently on IV antibiotics and IV diuretics. Subjective: Patient seen and examined at bedside. Patient continuing to be hypoxic with exertion. However, claims that he did better with ambulation yesterday. He used BiPAP overnight, currently on 6 L nasal cannula. He is also experiencing d ry nose and nose. He denies any chest pain, abdominal pain, diarrhea, constipation, urinary issues. Pertinent positives and negatives as discussed above, a complete review of systems was performed and all other systems are negative. Vitals Signs Reviewed. General: non toxic, no distress, appears at stated age Derm: warm, dry Head: atraumatic, normocephalic, symmetric Eyes: EOMI, no lid lag, anicteric sclera Mouth: no lip lesion, mucus membranes moist Cardiovascular: S1S2 reg, systolic murmur Lungs: Bilateral rales, no accessory muscle use, axillary or nasal cannula Abdominal: soft, nontender to palpation, no guarding, no appreciable organomegaly Ext: no gross muscle atrophy, trace edema, no contractures Neuro: CN II-XI grossly intact, no focal neuro deficits Psych: Alert, oriented, appropriate affect Assessment and Plan: Acute hypoxic respiratory failure Atypical pneumonia Possible lymphangitic metastatic spread Diastolic heart failure exacerbation -Pro calcitonin elevated -Continue ceftriaxone, completed azithromycin -Chest x-ray slowly improving -Leukocytosis resolved -Blood cultures no growth to date -Echo showed normal LV systolic function, by prostatic aortic WITH moderate to severe aortic stenosis, moderate to severe pulmonary hypertension, moderate MR and TR -IV diuretics -Both pulmonology and cardiology following Elevated troponin -Likely type II in the setting of demand ischemia Chronic kidney disease -Continue to monitor creatinine and urine output given diuretics -Renal function is improving Epistaxis -Continue nasal packing -Afrin nasal spray Chronic medical conditions: Atrial fibrillation Hypertension Dyslipidemia History of melanoma -Continue home medications DVT ppx: eliquis Code status: Full code Anticipated discharge place: Pending clinical course Anticipated discharge time: Pending clinical course Objective - Vital Signs Vital signs: Vital Signs Temp 98.2 F 04/20/22 08:18 Pulse 101 H 04/20/22 08:18 Resp 20 04/20/22 08:18 BP 128/72 04/20/22 08:18 Pulse Ox 93 L 04/20/22 08:18 FiO2 50 04/20/22 04:22 Intake & Output 04/19/22 04/20/22 04/20/22 18:59 06:59 18:59 Intake Total 300 Output Total 1650 1075 Balance -1350 -1075 Weight 75.523 kg Intake: Oral 300 Output: Urine 1650 1075 Other: Voiding Method Urinal Urinal - Labs CBC & Chem 7: 04/20/22 07:46 04/20/22 07:46 Labs: Abnormal Lab Results - Last 24 Hours (Table) 04/20/22 04/20/22 Range/Units 07:46 07:46 RBC 3.11 L (4.30-5.90) m/uL Hgb 10.0 L (13.0-17.5) gm/dL Hct 29.0 L (39.0-53.0) % BUN 51 H (9-20) mg/dL Creatinine 1.75 H (0.66-1.25) mg/dL Microbiology - Last 24 Hours (Table) 04/17/22 00:45 Blood Culture - Preliminary Blood No Growth after 72 hours 04/17/22 00:30 Blood Culture - Preliminary Blood No Growth after 72 hours
[2022-04-20] MEDS: OXYMETAZOLINE 0.05% NASL SPRAY 1 SPRAY BOTTLE NASAL SCH ×2 (12:12→21:15)
--- NOTE | 2022-04-20 14:20 | P.PN ---
Subjective Progress Note Date: 04/20/22 This is a 77-year-old white male, known history of bicuspid aortic valve, and had previous bioprosthetic aortic valve replacement in 2003. Patient is also known to have history of ascending aortic aneurysm, chronic congestive heart failure with preserved ejection fraction. History of melanoma receiving chemotherapy. Patient is receiving chemotherapy at the [facility] in [place]. 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 Lofton in the past. Patient presented to the ER with only 2 days history of increased shortness of breath on exertion. No cough no fever but he definitely had chills and could not keep himself warm apparently the night prior to admission. His shortness of breath has been progressively getting worse. Patient was brought in to the ER, and his chest x-ray was quite abnormal showing interstitial edema, possible underlying pneumonia. Patient was admitted, started empirically on antibiotics in the form of Rocephin and Zithromax, he was also given diuretics. Surprisingly the patient is feeling better overnight. And that makes me think of possibility of congestive heart failure. His pro-calcitonin level is pending and I am continuing his antibiotics empirically. Patient did not have the classic symptoms of pneumonia except the chills, no cough, and no fever documented. And his shortness of breath was rather sudden. No chest pain, no palpitations, patient is known to have history of aortic stenosis, moderately severe. Echocardiogram on this admission showed progressive moderate to severe aortic stenosis and moderate mitral regurgitation. Labs on admission did show evidence of leukocytosis with WBC count of 18.9, electrolytes are normal creatinine is 1.56, BNP is a bit elevated. And he tested negative for influenza A and influenza B and COVID-19 PCR was also negative. RSV was negative Patient was reevaluated today on 04/18/22, clinically the patient feels much better breathing a lot easier and his chest x-ray showed dramatic improvement basically overnight. Of course his infiltrates did not fully resolve, but that is at least 50% improvement in his bilateral interstitial edema/infiltrates. This alone speaks in favor of significant component of congestive heart failure, however underlying pneumonia is still very likely considering the patient has elevated pro calcitonin level, and the right midlung infiltrate is truly suspicious for infection. Again can't ignore that dramatic improvement overnight with diuresis. Never seen pneumonia improve overnight as such. At any rate the patient should remain on antibiotics and should remain on diuretics. Continue to monitor clinically and continue to monitor chest x-rays. Continue to monitor urine output and eyes and nose as well as daily weights. He should was reevaluated today on 04/19/22, patient developed worsening pulmonary status overnight, he desaturated, required placement on BiPAP, and he remains on BiPAP 10/5 FiO2 of 40%. Earlier today he was placed on 6 L nasal cannula but he desaturated and felt better on BiPAP, when I saw him the patient was on BiPAP. Patient was placed on Lasix 80 mg IV push daily maintenance, and he is now off Demadex. WBC count today is 15.1 electrolytes are normal BUN is 60 creatinine is 1.89, actually better today compared to yesterday, in spite of diuretics The patient is seen today 04/20/2022 in follow-up on the selective care unit. He is currently sitting up in bed. Awake and alert in no acute distress. Doing better today. He did wear her BiPAP 10/5 and 50% FiO2 throughout the night. He is having some issues with nosebleeds due to the nasal cannula. He is tolerating 6 L high flow. His Eliquis was held. He has normal saline at KVO. Blood cultures reveal no growth. White count 9.1. Hemoglobin 10.0. Sodium 139. Potassium 3.6. BUN 51. Creatinine 1.75. He remains afebrile. Hemodyn amically stable. Remains on Lasix 80 mg IV daily. Continue ceftriaxone. Continued on albuterol nebulized treatments. Objective - Vital Signs Vital signs: Vital Signs Temp 97.7 F 04/20/22 12:00 Pulse 74 04/20/22 12:00 Resp 18 04/20/22 12:00 BP 143/71 04/20/22 12:00 Pulse Ox 98 04/20/22 12:00 FiO2 50 04/20/22 04:22 Intake & Output 04/19/22 04/20/22 04/20/22 18:59 06:59 18:59 Intake Total 300 480 Output Total 1650 1075 1100 Balance -3659 -5761 -606 Weight 75.523 kg Intake: Oral 300 480 Output: Urine 1650 1075 1100 Other: Voiding Method Urinal Urinal Urinal - Exam GENERAL EXAM: Alert, very pleasant 77-year-old male patient, on 6 L high flow nasal cannula, comfortable in no apparent distress. HEAD: Normocephalic. EYES: Normal reaction of pupils, equal size. NOSE: Clear with pink turbinates. THROAT: No erythema or exudates. NECK: No masses, no JVD. CHEST: No chest wall deformity. LUNGS: Equal air entry with crackles in the bilateral bases. CVS: S1 and S2 normal with audible murmurs x 2, regular rhythm. ABDOMEN: No hepatosplenomegaly, normal bowel sounds, no guarding or rigidity. SPINE: No scoliosis or deformity SKIN: No rashes CENTRAL NERVOUS SYSTEM: No focal deficits, tone is normal in all 4 extremities. EXTREMITIES: There is no peripheral edema. No clubbing, no cyanosis. Peripheral pulses are intact. - Labs CBC & Chem 7: 04/20/22 07:46 04/20/22 07:46 Labs: Abnormal Lab Results - Last 24 Hours (Table) 04/20/22 04/20/22 Range/Units 07:46 07:46 RBC 3.11 L (4.30-5.90) m/uL Hgb 10.0 L (13.0-17.5) gm/dL Hct 29.0 L (39.0-53.0) % BUN 51 H (9-20) mg/dL Creatinine 1.75 H (0.66-1.25) mg/dL Microbiology - Last 24 Hours (Table) 04/17/22 00:45 Blood Culture - Preliminary Blood No Growth after 72 hours 04/17/22 00:30 Blood Culture - Preliminary Blood No Growth after 72 hours Assessment and Plan Assessment: Acute hypoxic respiratory failure secondary strongly suspect acute diastolic congestive heart failure and underlying pneumonia. Can't ignore dramatic improvement of chest x-ray basically overnight which speaks in favor of congestive heart failure and definitely cannot ignore elevated pro calcitonin level, which speaks in favor of pneumonia. Continue antibiotics and diuretics at the same time. Moderate severe aortic stenosis, patient has progressive aortic stenosis of bioprosthetic valve placed in 2003. And he had previous history of bicuspid aortic valve. Mitral regurgitation. Chronic atrial fibrillation. Anticoagulated with Eliquis. Currently in sinus rhythm Anemia History of ascending aortic aneurysm. Chronic congestive heart failure/diastolic in nature. History of recently diagnosed melanoma, on chemotherapy. Ex-smoker Plan: Medications and labs reviewed Continue diuretics Continue antibiotics Continue bronchodilators Follow-up chest x-ray in the a.m. Titrate the FiO2 as tolerated We will continue to follow I have personally seen and examined the patient, performed the documentation and the assessment and plan as written. Number of minutes spent on the visit: 10.
[2022-04-20] MEDS: ALBUTEROL NEBULIZED 2.5 MG/3 ML INHALATION SCH ×2 (15:44→19:31)
[2022-04-20] MEDS: SODIUM CHLORIDE 0.9% 1,000 ML IV SCH (17:04)
--- NOTE | 2022-04-20 21:01 | P.PN ---
Subjective This is a pleasant 77 -year-old male past medical history significant for persistent atrial fibrillation s/p ablation, bicuspid aortic valve s/p bio prosthetic AV replacement in 2003, hypertension, dyslipidemia, ascending aortic aneurysm, chronic heart failure with preserved ejection fraction, melanoma undergoing chemotherapy (Last chemo about 1-2 months ago), former tobacco use. He follows in the office with Dr. Peterson. We have been asked to see in consultation for dyspnea. Patient presents to the ER with shortness of breath. He states Saturday, he noticed more shortness of breath with activity, but was tolerable and subsided. Yesterday, he felt well in the morning, went to his doctors appointments and grocery shopping, and by the time he got home he felt progressively more short of breath. He states he could not catch his breath. He tried his CPAP machine and placed oxygen on. His breathing was not getting any better and called EMS to get evaluated in the ER. He has noticed symptoms of non-productive cough, congestion and chills at home. DIAGNOSTICS * Echocardiogram revealed EF 5055 %, moderate severe pulmonary hypertension wit h an RVSP of 52 mmHg, progressively aortic valve stenosis, moderate to severe aortic stenosis with a peak gradient of 65 mmHg, mean gradient 39 mmHg, moderate mitral regurgitation 04/18/2022 Patient seen and examined at bedside, no acute distress. Patient had some shortness of breath overnight was given IV Lasix 40mg x1, no significant improvement. Blood pressure 139/67, heart rate 81 Labs, sodium 140, potassium 4.5, BUN 55, serum creatinine 2.16, magnesium 2.4 04/19 Patient seen and examined. Patient was placed on BiPAP overnight and still remains on at this morning feeling somewhat better on BiPAP. White blood cell count mildly increased to 15.1. He was changed his home dose of torsemide yesterday however not as much output with approximately -1 L and mild improvement in creatinine to 1.8. He has however had increased respiratory rate and still on BiPAP and therefore additional dose of Lasix was given overnight with -2 L output. 04/20 Patient seen and examined. Intermittently using BIPAP overnight. Denies any chest pain or pressure. Still SOB however believes slowly improving. Good urine outpt with IV diuretics. Cr mildly improve to 1.7. PHYSICAL EXAMINATION Blood pressure CONSTITUTIONAL: No apparent distress. HEENT: Head is normocephalic.No JVD. CHEST EXAMINATION: Lungs are rhonchi bilaterally No chest wall tenderness is noted on palpation or with deep breathing. HEART EXAMINATION: Regular rate and rhythm. S1, S2 heard. Systolic murmur at base and apex, No gallops or rub. ABDOMEN: Soft, nontender. Positive bowel sounds. EXTREMITIES: 2+ peripheral pulses, no lower extremity edema and no calf tenderness. NEUROLOGIC EXAMINATION: Patient is awake, alert and oriented x3. ASSESSMENT Shortness of breath, likely multifactorial secondary to pneumonia as well as diastolic heart failure Elevated troponin, likely type II [place] secondary to demand ischemia Pneumonia Persistent atrial fibrillation s/p ablation History of bicuspid aortic valve s/p bioprosthetic AV replacement in 2003 Moderate to severe aortic stenosis Hypertension Dyslipidemia History of ascending aortic aneurysm Acute on chronic heart failure with preserved ejection fraction History of melanoma undergoing chemotherapy (Last chemo about 1-2 months ago) Former tobacco use PLAN Continue diuretics and monitor Cr closely and clinical response. Likely multifcatorial presentation with PNA as well as HF. Objective - Vital Signs Vital signs: Vital Signs Temp 98 F 04/20/22 19:37 Pulse 84 04/20/22 19:41 Resp 20 04/20/22 19:37 BP 132/62 04/20/22 19:37 Pulse Ox 94 L 04/20/22 19:37 FiO2 50 04/20/22 04:22 Intake & Output 04/20/22 04/20/22 04/21/22 06:59 18:59 06:59 Intake Total 1198 Output Total 1075 1600 Balance -1075 -402 Weight 75.523 kg Intake: Oral 1198 Output: Urine 1075 1600 Other: Voiding Method Urinal Urinal - Labs CBC & Chem 7: 04/20/22 07:46 04/20/22 07:46 Labs: Abnormal Lab Results - Last 24 Hours (Table) 04/20/22 04/20/22 Range/Units 07:46 07:46 RBC 3.11 L (4.30-5.90) m/uL Hgb 10.0 L (13.0-17.5) gm/dL Hct 29.0 L (39.0-53.0) % BUN 51 H (9-20) mg/dL Creatinine 1.75 H (0.66-1.25) mg/dL Microbiology - Last 24 Hours (Table) 04/17/22 00:45 Blood Culture - Preliminary Blood No Growth after 72 hours 04/17/22 00:30 Blood Culture - Preliminary Blood No Growth after 72 hours
[2022-04-21] MEDS: LEVOTHYROXINE 50 MCG TAB PO SCH (06:05)
[2022-04-21] MEDS: PANTOPRAZOLE 40 MG TABLET PO SCH (06:36)
[2022-04-21] MEDS: ALBUTEROL NEBULIZED 2.5 MG/3 ML INHALATION SCH ×4 (08:49→19:51)
[2022-04-21] MEDS: FUROSEMIDE 10 MG/ML 10 ML VIAL IV SCH (09:34)
[2022-04-21] MEDS: DULoxetine HCL 30 MG CAPSULE.DR PO SCH (09:34)
[2022-04-21] MEDS: APIXABAN 5 MG TAB PO SCH ×2 (09:34→21:18)
[2022-04-21] MEDS: ASPIRIN 81 MG PO SCH (09:34)
[2022-04-21] MEDS: METOPROLOL TARTRATE 25 MG TAB PO SCH ×2 (09:34→21:18)
[2022-04-21] MEDS: ATORVASTATIN 20 MG TAB PO SCH (09:34)
[2022-04-21] MEDS: CYANOCOBALAMIN 500 MCG TAB PO SCH (09:34)
[2022-04-21] MEDS: LORATADINE 10 MG TAB PO SCH (09:34)
[2022-04-21] MEDS: OXYMETAZOLINE 0.05% NASL SPRAY 1 SPRAY BOTTLE NASAL SCH ×2 (09:35→21:19)
[2022-04-21] MEDS: SODIUM CHLORIDE 0.9% 1,000 ML IV SCH (09:45)
[2022-04-21 09:47] LABS: Calcium 8.8 mg/dL (8.4-10.2); Magnesium 2.4 mg/dL (1.6-2.3); Potassium 3.8 mmol/L (3.5-5.1)
--- NOTE | 2022-04-21 10:16 | P.PN ---
Subjective Progress Note Date: 04/21/22 Principal diagnosis: SOB Hospital Course: 77-year-old male with history of bioprosthetic aortic valve replacement, atrial fibrillation, melanoma, hypertension, dyslipidemia presented for gradually worsening shortness of breath. Chest x-ray on admission showed patchy infiltrates suspicious for pneumonia versus possible lymphangitic metastatic disease versus pulmonary edema. Patient also had leukocytosis and elevated BNP, elevated troponin. He was hypoxic on room air, required supplemental oxygen and BiPAP. Patient evaluated by cardiology and pulmonology. Patient currently on IV antibiotics and IV diuretics. Respiratory status improving. Subjective: Patient seen and examined at bedside. No acute events overnight. Patient claims that he is feeling a lot better. He has minimal cough with clear sputum, but no chest pain or significant shortness of breath. He's currently on 2 L nasal cannula. He denies any chest pain, abdominal pain, diarrhea, constipation, urinary issues. Pertinent positives and negatives as discussed above, a complete review of systems was performed and all other systems are negative. Vitals Signs Reviewed. General: non toxic, no distress, appears at stated age Derm: warm, dry Head: atraumatic, normocephalic, symmetric Eyes: EOMI, no lid lag, anicteric sclera Mouth: no lip lesion, mucus membranes moist Cardiovascular: S1S2 reg, systolic murmur Lungs: Bilateral rales at bases, no accessory muscle use, 2 L nasal cannula Abdominal: soft, nontender to palpation, no guarding, no appreciable organomegaly Ext: no gross muscle atrophy, trace edema, no contractures Neuro: CN II-XI grossly intact, no focal neuro deficits Psych: Alert, oriented, appropriate affect Assessment and Plan: Acute hypoxic respiratory failure Atypical pneumonia Possible lymphangitic metastatic spread Diastolic heart failure exacerbation -Pro calcitonin elevated -Continue ceftriaxone, completed azithromycin -Chest x-ray slowly improving -Leukocytosis resolved -Blood cultures no growth to date -Echo showed normal LV systolic function, bioprosthetic aortic valve with moderate to severe aortic stenosis, moderate to severe pulmonary hypertension, moderate MR and TR -IV diuretics -Both pulmonology and cardiology following -Continue to wean off oxygen, likely discharge home tomorrow Elevated troponin -Likely type II in the setting of demand ischemia Chronic kidney disease -Continue to monitor creatinine and urine output given diuretics -Renal function is improving Epistaxis - resolved Chronic medical conditions: Atrial fibrillation Hypertension Dyslipidemia History of melanoma -Continue home medications DVT ppx: eliquis Code status: Full code Anticipated discharge place: Home Anticipated discharge time: Likely tomorrow Objective - Vital Signs Vital signs: Vital Signs Temp 97.5 F L 04/21/22 04:00 Pulse 80 04/21/22 09:03 Resp 18 04/21/22 04:00 BP 149/70 04/21/22 04:00 Pulse Ox 96 04/21/22 08:49 FiO2 50 04/21/22 04:03 Intake & Output 04/20/22 04/21/22 04/21/22 18:59 06:59 18:59 Intake Total 1198 Output Total 1600 350 Balance -402 -350 Weight 73.2 kg Intake: Oral 1198 Output: Urine 1600 350 Other: Voiding Method Urinal Urinal - Labs CBC & Chem 7: 04/20/22 07:46 04/21/22 08:28 Labs: Abnormal Lab Results - Last 24 Hours (Table) 04/21/22 Range/Units 08:28 BUN 49 H (9-20) mg/dL Creatinine 1.64 H (0.66-1.25) mg/dL Glucose 136 H (74-99) mg/dL Magnesium 2.4 H (1.6-2.3) mg/dL Microbiology - Last 24 Hours (Table) 04/17/22 00:30 Blood Culture - Preliminary Blood No Growth after 96 hours 04/17/22 00:45 Blood Culture - Preliminary Blood No Growth after 96 hours
--- NOTE | 2022-04-21 11:07 | XR ---
EXAMINATION TYPE: XR chest 1V portable DATE OF EXAM: 04/21/2022 HISTORY: Shortness of breath. COMPARISON: 04/19/2022 TECHNIQUE: Single view of the chest is submitted. FINDINGS: Demonstrated are scattered senescent parenchymal change. Persistent but much improved perihilar infiltrates. Continued pulmonary venous congestion and cardiom egaly as well as small effusions. Hilar and mediastinal structures are within normal limits. Degenerative changes are seen of the dorsal spine. IMPRESSION: 1. Findings suggest improving congestive failure.
--- NOTE | 2022-04-21 12:41 | P.PN ---
Subjective This is a pleasant 77 -year-old male past medical history significant for persistent atrial fibrillation s/p ablation, bicuspid aortic valve s/p bio prosthetic AV replacement in 2003, hypertension, dyslipidemia, ascending aortic aneurysm, chronic heart failure with preserved ejection fraction, melanoma undergoing chemotherapy (Last chemo about 1-2 months ago), former tobacco use. He follows in the office with Dr. Peterson. We have been asked to see in consultation for dyspnea. Patient presents to the ER with shortness of breath. He states Saturday, he noticed more shortness of breath with activity, but was tolerable and subsided. Yesterday, he felt well in the morning, went to his doctors appointments and grocery shopping, and by the time he got home he felt progressively more short of breath. He states he could not catch his breath. He tried his CPAP machine and placed oxygen on. His breathing was not getting any better and called EMS to get evaluated in the ER. He has noticed symptoms of non-productive cough, congestion and chills at home. DIAGNOSTICS * Echocardiogram revealed EF 5055 %, moderate severe pulmonary hypertension wit h an RVSP of 52 mmHg, progressively aortic valve stenosis, moderate to severe aortic stenosis with a peak gradient of 65 mmHg, mean gradient 39 mmHg, moderate mitral regurgitation 04/18/2022 Patient seen and examined at bedside, no acute distress. Patient had some shortness of breath overnight was given IV Lasix 40mg x1, no significant improvement. Blood pressure 139/67, heart rate 81 Labs, sodium 140, potassium 4.5, BUN 55, serum creatinine 2.16, magnesium 2.4 04/19 Patient seen and examined. Patient was placed on BiPAP overnight and still remains on at this morning feeling somewhat better on BiPAP. White blood cell count mildly increased to 15.1. He was changed his home dose of torsemide yesterday however not as much output with approximately -1 L and mild improvement in creatinine to 1.8. He has however had increased respiratory rate and still on BiPAP and therefore additional dose of Lasix was given overnight with -2 L output. 04/20 Patient seen and examined. Intermittently using BIPAP overnight. Denies any chest pain or pressure. Still SOB however believes slowly improving. Good urine outpt with IV diuretics. Cr mildly improve to 1.7. 04/21 Patient seen and examined. Patient continues on IV Lasix and has had good urine output with creatinine remaining stable 1.6. Admits he is feeling significantly better today. Still on nasal cannula. No lower extremity edema. PHYSICAL EXAMINATION Blood pressure CONSTITUTIONAL: No apparent distress. HEENT: Head is normocephalic.No JVD. CHEST EXAMINATION: Lungs are rhonchi bilaterally No chest wall tenderness is noted on palpation or with deep breathing. HEART EXAMINATION: Regular rate and rhythm. S1, S2 heard. Systolic murmur at base and apex, No gallops or rub. ABDOMEN: Soft, nontender. Positive bowel sounds. EXTREMITIES: 2+ peripheral pulses, no lower extremity edema and no calf tenderness. NEUROLOGIC EXAMINATION: Patient is awake, alert and oriented x3. ASSESSMENT Shortness of breath, likely multifactorial secondary to pneumonia as well as diastolic heart failure Elevated troponin, likely type II DE secondary to demand ischemia Pneumonia Persistent atrial fibrillation s/p ablation History of bicuspid aortic valve s/p bioprosthetic AV replacement in 2003 Moderate to severe aortic stenosis Hypertension Dyslipidemia History of ascending aortic aneurysm Acute on chronic heart failure with preserved ejection fraction History of melanoma undergoing chemotherapy (Last chemo about 1-2 months ago) Former tobacco use PLAN Continue with IV Lasix once daily and likely transition to orals tomorrow. Monitor patient's progress. Hopeful discharge in next 24-48 hours from cardio standpoint. Likely multifcatorial presentation with PNA as well as HF. Objective - Vital Signs Vital signs: Vital Signs Temp 97.9 F 04/21/22 12:00 Pulse 84 04/21/22 12:21 Resp 16 04/21/22 12:00 BP 137/90 04/21/22 12:00 Pulse Ox 97 04/21/22 12:00 FiO2 50 04/21/22 04:03 Intake & Output 04/20/22 04/21/22 04/21/22 18:59 06:59 18:59 Intake Total 1198 118 Output Total 7979 208 2665 Balance -402 -252 -139 Weight 73.2 kg Intake: Oral 1198 118 Output: Urine 0409 916 2015 Other: Voiding Method Urinal Urinal Urinal - Labs CBC & Chem 7: 04/20/22 07:46 04/21/22 08:28 Labs: Abnormal Lab Results - Last 24 Hours (Table) 04/21/22 Range/Units 08:28 BUN 49 H (9-20) mg/dL Creatinine 1.64 H (0.66-1.25) mg/dL Glucose 136 H (74-99) mg/dL Magnesium 2.4 H (1.6-2.3) mg/dL Microbiology - Last 24 Hours (Table) 04/17/22 00:30 Blood Culture - Preliminary Blood No Growth after 96 hours 04/17/22 00:45 Blood Culture - Preliminary Blood No Growth after 96 hours
--- NOTE | 2022-04-21 13:12 | P.PN ---
Subjective Progress Note Date: 04/21/22 This is a 77-year-old white male, known history of bicuspid aortic valve, and had previous bioprosthetic aortic valve replacement in 2003. Patient is also known to have history of ascending aortic aneurysm, chronic congestive heart failure with preserved ejection fraction. History of melanoma receiving chemotherapy. Patient is receiving chemotherapy at the [facility] in [place]. 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 Lofton in the past. Patient presented to the ER with only 2 days history of increased shortness of breath on exertion. No cough no fever but he definitely had chills and could not keep himself warm apparently the night prior to admission. His shortness of breath has been progressively getting worse. Patient was brought in to the ER, and his chest x-ray was quite abnormal showing interstitial edema, possible underlying pneumonia. Patient was admitted, started empirically on antibiotics in the form of Rocephin and Zithromax, he was also given diuretics. Surprisingly the patient is feeling better overnight. And that makes me think of possibility of congestive heart failure. His pro-calcitonin level is pending and I am continuing his antibiotics empirically. Patient did not have the classic symptoms of pneumonia except the chills, no cough, and no fever documented. And his shortness of breath was rather sudden. No chest pain, no palpitations, patient is known to have history of aortic stenosis, moderately severe. Echocardiogram on this admission showed progressive moderate to severe aortic stenosis and moderate mitral regurgitation. Labs on admission did show evidence of leukocytosis with WBC count of 18.9, electrolytes are normal creatinine is 1.56, BNP is a bit elevated. And he tested negative for influenza A and influenza B and COVID-19 PCR was also negative. RSV was negative Patient was reevaluated today on 04/18/22, clinically the patient feels much better breathing a lot easier and his chest x-ray showed dramatic improvement basically overnight. Of course his infiltrates did not fully resolve, but that is at least 50% improvement in his bilateral interstitial edema/infiltrates. This alone speaks in favor of significant component of congestive heart failure, however underlying pneumonia is still very likely considering the patient has elevated pro calcitonin level, and the right midlung infiltrate is truly suspicious for infection. Again can't ignore that dramatic improvement overnight with diuresis. Never seen pneumonia improve overnight as such. At any rate the patient should remain on antibiotics and should remain on diuretics. Continue to monitor clinically and continue to monitor chest x-rays. Continue to monitor urine output and eyes and nose as well as daily weights. He should was reevaluated today on 04/19/22, patient developed worsening pulmonary status overnight, he desaturated, required placement on BiPAP, and he remains on BiPAP 10/5 FiO2 of 40%. Earlier today he was placed on 6 L nasal cannula but he desaturated and felt better on BiPAP, when I saw him the patient was on BiPAP. Patient was placed on Lasix 80 mg IV push daily maintenance, and he is now off Demadex. WBC count today is 15.1 electrolytes are normal BUN is 60 creatinine is 1.89, actually better today compared to yesterday, in spite of diuretics The patient is seen today 04/20/2022 in follow-up on the selective care unit. He is currently sitting up in bed. Awake and alert in no acute distress. Doing better today. He did wear her BiPAP 10/5 and 50% FiO2 throughout the night. He is having some issues with nosebleeds due to the nasal cannula. He is tolerating 6 L high flow. His Eliquis was held. He has normal saline at KVO. Blood cultures reveal no growth. White count 9.1. Hemoglobin 10.0. Sodium 139. Potassium 3.6. BUN 51. Creatinine 1.75. He remains afebrile. Hemodyn amically stable. Remains on Lasix 80 mg IV daily. Continue ceftriaxone. Continued on albuterol nebulized treatments. The patient is seen today 04/21/2022 in follow-up on the selective care unit. He is currently sitting up at the bedside. Awake and alert in no acute distress. Maintaining O2 saturations in the mid 90s on 2 L/m per nasal cannula. Afebrile. Hemodynamically stable. Chest x-ray showing improved aeration and less pulmonary vascular congestion. There is persistent but improved perihilar infiltrates as well. Blood cultures revealed no growth. Sodium 141 potassium 3.8. BUN 49. Creatinine 1.64. Glucose 136. He is continued on ceftriaxone. Remains on IV diuretics. Objective - Vital Signs Vital signs: Vital Signs Temp 97.9 F 04/21/22 12:00 Pulse 84 04/21/22 12:21 Resp 16 04/21/22 12:00 BP 137/90 04/21/22 12:00 Pulse Ox 97 04/21/22 12:00 FiO2 50 04/21/22 04:03 Intake & Output 04/20/22 04/21/22 04/21/22 18:59 06:59 18:59 Intake Total 1198 236 Output Total 6764 594 8889 Balance -402 -527 -819 Weight 73.2 kg Intake: Oral 1198 236 Output: Urine 9654 829 2418 Other: Voiding Method Urinal Urinal Urinal - Exam GENERAL EXAM: Alert, 77-year-old male patient, on 2 L nasal cannula, comfortable in no apparent distress. HEAD: Normocephalic. EYES: Normal reaction of pupils, equal size. NOSE: Clear with pink turbinates. THROAT: No erythema or exudates. NECK: No masses, no JVD. CHEST: No chest wall deformity. LUNGS: Equal air entry with crackles in the bilateral bases. CVS: S1 and S2 normal with audible murmurs x 2, regular rhythm. ABDOMEN: No hepatosplenomegaly, normal bowel sounds, no guarding or rigidity. SPINE: No scoliosis or deformity SKIN: No rashes CENTRAL NERVOUS SYSTEM: No focal deficits, tone is normal in all 4 extremities. EXTREMITIES: There is no peripheral edema. No clubbing, no cyanosis. Peripheral pulses are intact. - Labs CBC & Chem 7: 04/20/22 07:46 04/21/22 08:28 Labs: Abnormal Lab Results - Last 24 Hours (Table) 04/21/22 Range/Units 08:28 BUN 49 H (9-20) mg/dL Creatinine 1.64 H (0.66-1.25) mg/dL Glucose 136 H (74-99) mg/dL Magnesium 2.4 H (1.6-2.3) mg/dL Microbiology - Last 24 Hours (Table) 04/17/22 00:30 Blood Culture - Preliminary Blood No Growth after 96 hours 04/17/22 00:45 Blood Culture - Preliminary Blood No Growth after 96 hours Assessment and Plan Assessment: Acute hypoxic respiratory failure secondary strongly suspect acute diastolic congestive heart failure and underlying pneumonia. Can't ignore dramatic improvement of chest x-ray basically overnight which speaks in favor of congestive heart failure and definitely cannot ignore elevated pro calcitonin level, which speaks in favor of pneumonia. Continue antibiotics and diuretics at the same time. Moderate severe aortic stenosis, patient has progressive aortic stenosis of bioprosthetic valve placed in 2003. And he had previous history of bicuspid aortic valve. Mitral regurgitation. Chronic atrial fibrillation. Anticoagulated with Eliquis. Currently in sinus rhythm Anemia History of ascending aortic aneurysm. Chronic congestive heart failure/diastolic in nature. History of recently diagnosed melanoma, on chemotherapy. Ex-smoker Plan: The patient was seen and evaluated Chest x-ray, medications and labs reviewed Improving and down to 2 L nasal cannula Continue diuretics, antibiotics Continue bronchodilators Titrate the FiO2 as tolerated We will continue to follow I have personally seen and examined the patient, performed the documentation and the assessment and plan as written. Number of minutes spent on the visit: 10.
[2022-04-22] MEDS: LEVOTHYROXINE 50 MCG TAB PO SCH (06:17)
[2022-04-22] MEDS: PANTOPRAZOLE 40 MG TABLET PO SCH (06:34)
[2022-04-22] MEDS: ALBUTEROL NEBULIZED 2.5 MG/3 ML INHALATION SCH ×2 (08:07→11:21)
[2022-04-22 08:32] VITALS: TEMP 97.6
[2022-04-22] MEDS: CYANOCOBALAMIN 500 MCG TAB PO SCH (10:22)
[2022-04-22] MEDS: ATORVASTATIN 20 MG TAB PO SCH (10:22)
[2022-04-22] MEDS: METOPROLOL TARTRATE 25 MG TAB PO SCH (10:22)
[2022-04-22] MEDS: DULoxetine HCL 30 MG CAPSULE.DR PO SCH (10:22)
[2022-04-22] MEDS: LORATADINE 10 MG TAB PO SCH (10:22)
[2022-04-22] MEDS: FUROSEMIDE 10 MG/ML 10 ML VIAL IV SCH (10:22)
[2022-04-22] MEDS: APIXABAN 5 MG TAB PO SCH (10:22)
[2022-04-22] MEDS: ASPIRIN 81 MG PO SCH (10:22)
--- NOTE | 2022-04-22 11:05 | P.DS ---
Providers Date of admission: 04/17/22 01:11 Expected date of discharge: 04/22/22 Attending physician: Toan Boss MD Consults: 04/17/22 01:11 Consult Physician Routine Consulting Provider: Mike Tejada Consult Reason/Comments: hypoxia Do you want consulting provider notified?: Yes Consult Physician Routine Consulting Provider: Esther Mack Consult Reason/Comments: chf Do you want consulting provider notified?: Yes Primary care physician: Stated None Hospital Course: Discharge Diagnosis: Acute hypoxic respiratory failure Community-acquired pneumonia Diastolic heart failure exacerbation History of bicuspid aortic valve status post bioprosthetic aortic valve replacement Moderate to severe aortic stenosis Elevated troponin Chronic kidney disease Epistaxis Atrial fibrillation Hypertension Dyslipidemia History of melanoma Hospital Course: 77-year-old male with history of bioprosthetic aortic valve replacement, atrial fibrillation, melanoma, hypertension, dyslipidemia presented for gradually worsening shortness of breath. Chest x-ray on admission showed patchy infiltrates suspicious for pneumonia versus possible lymphangitic metastatic disease versus pulmonary edema. Patient also had leukocytosis and elevated BNP, and elevated troponin. EKG showed normal sinus rhythm with known left bundle branch block. He was hypoxic on room air, required supplemental oxygen and BiPAP. Patient evaluated by cardiology and pulmonology. Echocardiogram showed normal LV dimension and systolic function, LVEF 50-55%. Moderate to severe aortic stenosis, bioprosthetic aortic valve, moderate MR and TR, RVSP 52.5. Patient also had elevated product calcitonin concerning for ongoing pneumonia along with heart failure exacerbation. He was started on IV diuretics as well as IV antibiotics. His leukocytosis and respiratory symptoms improved with medical therapy. At the time of discharge, patient was saturating well on room air. On admission, he was also noted to have elevated creatinine, which improved with diuretics. He will be discharged on 40 mg of Lasix oral twice a day, and complete his antibiotic course at home. Hydralazine was not given during this admission, discontinued at discharge.. He will follow up with cardiology and PCP. Patient seen and examined at bedside. Vital signs reviewed and stable. General: non toxic, no distress, appears at stated age Derm: warm, dry Head: atraumatic, normocephalic, symmetric Eyes: EOMI, no lid lag, anicteric sclera Mouth: no lip lesion, mucus membranes moist Cardiovascular: S1S2 reg, systolic murmur Lungs: minimal rales at bases, no accessory muscle use, Abdominal: soft, nontender to palpation, no guarding, no appreciable organomegaly Ext: no gross muscle atrophy, trace edema, no contractures Neuro: CN II-XI grossly intact, no focal neuro deficits Psych: Alert, oriented, appropriate affect A total of 45 minutes of time were spent preparing this complex discharge summary. Patient was discharged on 04/22/22 at 9:46. Patient Condition at Discharge: Stable Plan - Discharge Summary Discharge Rx Participant: Yes New Discharge Prescriptions: New Cefdinir 300 mg PO Q12HR #4 cap Furosemide [Lasix] 40 mg PO BID #60 tablet Continue Aspirin [Adult Low Dose Aspirin EC] 81 mg PO DAILY [place]-3 Fatty Acids/Fish Oil [Fish Oil 1,000 mg Softgel] 1 cap PO DAILY flaxseed oiL [Flaxseed Oil] 1,000 mg PO DAILY Apixaban [Eliquis] 5 mg PO BID Levothyroxine Sodium [Synthroid] 50 mcg PO DAILY Lidocaine 5% Patch [Lidoderm 5% Patch] 1 patch TOPICAL DAILY DULoxetine HCL [Cymbalta] 30 mg PO DAILY Cyanocobalamin [Vitamin B-12] 500 mcg PO DAILY Loratadine 10 mg PO DAILY amLODIPine [Norvasc] 10 mg PO DAILY #30 tablet Fluticasone Nasal [place] [Flonase Nasal [place]] 1 spray EA NOSTRIL BID PRN PRN Reason: Allergy Symptoms Metoprolol Tartrate [Lopressor] 25 mg PO BID Carboxymethylcellulose Sodium [Refresh Tears] 1 drop BOTH EYES QID Rosuvastatin [Crestor] 10 mg PO DAILY Albuterol Sulfate [Albuterol Sulfate Hfa] 1 puff PO RT-Q4H PRN PRN Reason: Shortness Of Breath Discontinued hydrALAZINE HCL [Apresoline] 25 mg PO TID #30 tab Torsemide [Demadex] 10 mg PO DAILY #30 tablet Discharge Medication List Apixaban [Eliquis] 5 mg PO BID 02/24/20 [History] Aspirin [Adult Low Dose Aspirin EC] 81 mg PO DAILY 02/24/20 [History] [place]-3 Fatty Acids/Fish Oil [Fish Oil 1,000 mg Softgel] 1 cap PO DAILY 02/24/20 [History] flaxseed oiL [Flaxseed Oil] 1,000 mg PO DAILY 09/16/20 [History] Albuterol Sulfate [Albuterol Sulfate Hfa] 1 puff PO RT-Q4H PRN 02/08/22 [History] Carboxymethylcellulose Sodium [Refresh Tears] 1 drop BOTH EYES QID 02/08/22 [History] Cyanocobalamin [Vitamin B-12] 500 mcg PO DAILY 02/08/22 [History] DULoxetine HCL [Cymbalta] 30 mg PO DAILY 02/08/22 [History] Levothyroxine Sodium [Synthroid] 50 mcg PO DAILY 02/08/22 [History] Lidocaine 5% Patch [Lidoderm 5% Patch] 1 patch TOPICAL DAILY 02/08/22 [History] Loratadine 10 mg PO DAILY 02/08/22 [History] Rosuvastatin [Crestor] 10 mg PO DAILY 02/08/22 [History] amLODIPine [Norvasc] 10 mg PO DAILY #30 tablet 02/23/22 [Rx] Fluticasone Nasal [place] [Flonase Nasal [place]] 1 spray EA NOSTRIL BID PRN [History] Metoprolol Tartrate [Lopressor] 25 mg PO BID 04/17/22 [History] Cefdinir 300 mg PO Q12HR #4 cap 04/22/22 [Rx] Furosemide [Lasix] 40 mg PO BID #60 tablet 04/22/22 [Rx] Follow up Appointment(s)/Referral(s): Shant Peterson DO [STAFF PHYSICIAN] - 05/01/22 None,Stated [Primary Care Provider] - 1-2 days Patient Instructions/Handouts: Heart Failure (DC), Bacterial Pneumonia (DC) Activity/Diet/Wound Care/Special Instructions: Please see your PCP in 1-2 days. Please follow up with Cardiology in the future to make further changes to your lasix dose. Discharge Disposition: HOME SELF-CARE
[2022-04-22] MEDS: OXYMETAZOLINE 0.05% NASL SPRAY 1 SPRAY BOTTLE NASAL SCH (11:34)
[2022-04-22] MEDS: SODIUM CHLORIDE 0.9% 1,000 ML IV SCH (11:34)
--- NOTE | 2022-04-22 12:11 | P.PN ---
Subjective Progress Note Date: 04/22/22 Principal diagnosis: Acute community-acquired pneumonia and underlying congestive heart failure This is a 77-year-old white male, known history of bicuspid aortic valve, and had previous bioprosthetic aortic valve replacement in 2003. Patient is also known to have history of ascending aortic aneurysm, chronic congestive heart failure with preserved ejection fraction. History of melanoma receiving chemotherapy. Patient is receiving chemotherapy at the [facility] in [place]. 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 Lofton in the past. Patient presented to the ER with only 2 days history of increased shortness of breath on exertion. No cough no fever but he definitely had chills and could not keep himself warm apparently the night prior to admission. His shortness of breath has been progressively getting worse. Patient was brought in to the ER, and his chest x-ray was quite abnormal showing interstitial edema, possible underlying pneumonia. Patient was admitted, started empirically on antibiotics in the form of Rocephin and Zithromax, he was also given diuretics. Surprisingly the patient is feeling better overnight. And that makes me think of possibility of congestive heart failure. His pro-calcitonin level is pending and I am continuing his antibiotics empirically. Patient did not have the classic symptoms of pneumonia except the chills, no cough, and no fever documented. And his shortness of breath was rather sudden. No chest pain, no palpitations, patient is known to have history of aortic stenosis, moderately severe. Echocardiogram on this admission showed progressive moderate to severe aortic stenosis and moderate mitral regurgitation. Labs on admission did show evidence of leukocytosis with WBC count of 18.9, electrolytes are normal creatinine is 1.56, BNP is a bit elevated. And he tested negative for influenza A and influenza B and COVID-19 PCR was also negative. RSV was negative Patient was reevaluated today on 04/18/22, clinically the patient feels much better breathing a lot easier and his chest x-ray showed dramatic improvement basically overnight. Of course his infiltrates did not fully resolve, but that is at least 50% improvement in his bilateral interstitial edema/infiltrates. This alone speaks in favor of significant component of congestive heart failure, however underlying pneumonia is still very likely considering the patient has elevated pro calcitonin level, and the right midlung infiltrate is truly suspicious for infection. Again can't ignore that dramatic improvement overnight with diuresis. Never seen pneumonia improve overnight as such. At any rate the patient should remain on antibiotics and should remain on diuretics. Continue to monitor clinically and continue to monitor chest x-rays. Continue to monitor urine output and eyes and nose as well as daily weights. He should was reevaluated today on 04/19/22, patient developed worsening pulmonary status overnight, he desaturated, required placement on BiPAP, and he remains on BiPAP 03/14 FiO2 of 40%. Earlier today he was placed on 6 L nasal cannula but he desaturated and felt better on BiPAP, when I saw him the patient was on BiPAP. Patient was placed on Lasix 80 mg IV push daily maintenance, and he is now off Demadex. WBC count today is 15.1 electrolytes are normal BUN is 60 creatinine is 1.89, actually better today compared to yesterday, in spite of diuretics Reevaluated today on 04/22/22, patient is doing much better today, chest x-ray is dramatically improved, I believe the patient could be discharged home if cleared by cardiology, I would recommend few more days of antibiotics, however the patient needs to be on relatively high-dose of diuretics for his congestive heart failure. Based on the dramatic improvement of the chest x-ray with diuresis, I believe the main issue here is mostly an issue of congestive heart failure. I recommended antibiotics mostly because the pro-calcitonin level was high, but clinically this is a presentation of congestive heart failure unless for otherwise. Chest x-ray is much better clinically the patient is much better, hence I will cleared for discharge if cleared by cardiology. And he needs to have close outpatient follow-up on his cardiac status. Objective - Vital Signs Vital signs: Vital Signs Temp 97.6 F 04/22/22 08:00 Pulse 64 04/22/22 11:31 Resp 18 04/22/22 08:00 BP 137/74 04/22/22 08:00 Pulse Ox 94 L 04/22/22 08:00 FiO2 35 04/22/22 03:09 Intake & Output 04/21/22 04/22/22 04/22/22 18:59 06:59 18:59 Intake Total 714 Output Total 2074 225 Balance -1361 -225 Weight 74.3 kg Intake: Oral 714 Output: Urine 2074 225 Other: Voiding Method Urinal Urinal Urinal - Exam Physical Exam: Revealed 77-year-old white male, pleasant, on room air. Head: Atraumatic, normocephalic. HEENT:[Neck is supple.] [No neck masses.] [No thyromegaly.] [No JVD.] Chest: Good breath sound bilaterally with occasional crackles noted. Cardiac Exam: Normal S1 and S2, 2/6 systolic murmur over the lower sternal border, and 3/6 systolic murmur right over the right parasternal area over the aortic area. Abdomen: [Soft, nontender, no megaly, no rebound, no guarding, normal bowel sounds.] Extremities: [No clubbing, no edema, no cyanosis.] Neurological Exam: [No focal neurologic deficit. Alert oriented 3 Psychiatric: Normal mood, affect and normal mental status examination. Skin: No rashes] - Labs CBC & Chem 7: 04/20/22 07:46 04/21/22 08:28 Labs: Microbiology - Last 24 Hours (Table) 04/17/22 00:45 Blood Culture - Preliminary Blood No Growth after 120 hours 04/17/22 00:30 Blood Culture - Preliminary Blood No Growth after 120 hours Assessment and Plan Assessment: Impression: Acute hypoxic respiratory failure secondary strongly suspect acute diastolic congestive heart failure and underlying pneumonia. Can't ignore dramatic improvement of chest x-ray basically overnight which speaks in favor of congestive heart failure and definitely cannot ignore elevated pro calcitonin level, which speaks in favor of pneumonia. Hence I'm recommending we continue antibiotics and diuretics at the same time. And continue to monitor el ectrolytes, renal profile, weights, I's and O's, and x-rays of the chest at least every other day basis Moderate severe aortic stenosis, patient has progressive aortic stenosis of bioprosthetic valve placed in 2003. And he had previous history of bicuspid aortic valve. Mitral regurgitation. Chronic atrial fibrillation. History of ascending aortic aneurysm. Chronic congestive heart failure/diastolic in nature. History of recently diagnosed melanoma, on chemotherapy. Ex-smoker. Recommendation: We'll clear the patient to be discharged home with cleared by other consultants. Reviewed and discussed with the patient although x-rays from admission till now, and showed him the significant improvement noted within the last few days. Agree with discharging the patient home on a few days of antibiotics, but the patient needs to be on maintenance diuretics, and he should weigh himself daily, patient should have follow-up with cardiology and I will see him in the office in one week. Time with Patient: Less than 30
--- NOTE | 2022-04-22 14:43 | P.PN ---
Subjective This is a pleasant 77 -year-old male past medical history significant for persistent atrial fibrillation s/p ablation, bicuspid aortic valve s/p bio prosthetic AV replacement in 2003, hypertension, dyslipidemia, ascending aortic aneurysm, chronic heart failure with preserved ejection fraction, melanoma undergoing chemotherapy (Last chemo about 1-2 months ago), former tobacco use. He follows in the office with Dr. Peterson. We have been asked to see in consultation for dyspnea. Patient presents to the ER with shortness of breath. He states Saturday, he noticed more shortness of breath with activity, but was tolerable and subsided. Yesterday, he felt well in the morning, went to his doctors appointments and grocery shopping, and by the time he got home he felt progressively more short of breath. He states he could not catch his breath. He tried his CPAP machine and placed oxygen on. His breathing was not getting any better and called EMS to get evaluated in the ER. He has noticed symptoms of non-productive cough, congestion and chills at home. DIAGNOSTICS * Echocardiogram revealed EF 5055 %, moderate severe pulmonary hypertension wit h an RVSP of 52 mmHg, progressively aortic valve stenosis, moderate to severe aortic stenosis with a peak gradient of 65 mmHg, mean gradient 39 mmHg, moderate mitral regurgitation 04/18/2022 Patient seen and examined at bedside, no acute distress. Patient had some shortness of breath overnight was given IV Lasix 40mg x1, no significant improvement. Blood pressure 139/67, heart rate 81 Labs, sodium 140, potassium 4.5, BUN 55, serum creatinine 2.16, magnesium 2.4 04/19 Patient seen and examined. Patient was placed on BiPAP overnight and still remains on at this morning feeling somewhat better on BiPAP. White blood cell count mildly increased to 15.1. He was changed his home dose of torsemide yesterday however not as much output with approximately -1 L and mild improvement in creatinine to 1.8. He has however had increased respiratory rate and still on BiPAP and therefore additional dose of Lasix was given overnight with -2 L output. 04/20 Patient seen and examined. Intermittently using BIPAP overnight. Denies any chest pain or pressure. Still SOB however believes slowly improving. Good urine outpt with IV diuretics. Cr mildly improve to 1.7. 04/21 Patient seen and examined. Patient continues on IV Lasix and has had good urine output with creatinine remaining stable 1.6. Admits he is feeling significantly better today. Still on nasal cannula. No lower extremity edema. 04/22 patient seen and examined. Patient off of oxygen and has been doing much better. Still had good urine output with the Lasix 80 mg daily. Feels good enough to go home and anxious to go home. PHYSICAL EXAMINATION Blood pressure CONSTITUTIONAL: No apparent distress. HEENT: Head is normocephalic.No JVD. CHEST EXAMINATION: Lungs are rhonchi bilaterally No chest wall tenderness is not ed on palpation or with deep breathing. HEART EXAMINATION: Regular rate and rhythm. S1, S2 heard. Systolic murmur at base and apex, No gallops or rub. ABDOMEN: Soft, nontender. Positive bowel sounds. EXTREMITIES: 2+ peripheral pulses, no lower extremity edema and no calf tenderness. NEUROLOGIC EXAMINATION: Patient is awake, alert and oriented x3. ASSESSMENT Shortness of breath, likely multifactorial secondary to pneumonia as well as diastolic heart failure Elevated troponin, likely type II NV secondary to demand ischemia Pneumonia Persistent atrial fibrillation s/p ablation History of bicuspid aortic valve s/p bioprosthetic AV replacement in 2003 Moderate to severe aortic stenosis Hypertension Dyslipidemia History of ascending aortic aneurysm Acute on chronic heart failure with preserved ejection fraction History of melanoma undergoing chemotherapy (Last chemo about 1-2 months ago) Former tobacco use PLAN patient appears stable for discharge home on diuretics. Follow-up outpatient in 1-2 weeks. Objective - Vital Signs Vital signs: Vital Signs Temp 97.6 F 04/22/22 08:00 Pulse 64 04/22/22 11:31 Resp 18 04/22/22 08:00 BP 137/74 04/22/22 08:00 Pulse Ox 94 L 04/22/22 08:00 FiO2 35 04/22/22 03:09 Intake & Output 04/21/22 04/22/22 04/22/22 18:59 06:59 18:59 Intake Total 714 Output Total 5 225 Balance -1361 -225 Weight 74.3 kg Intake: Oral 714 Output: Urine 2074 225 Other: Voiding Method Urinal Urinal Urinal - Labs CBC & Chem 7: 04/20/22 07:46 04/21/22 08:28 Labs: Microbiology - Last 24 Hours (Table) 04/17/22 00:45 Blood Culture - Preliminary Blood No Growth after 120 hours 04/17/22 00:30 Blood Culture - Preliminary Blood No Growth after 120 hours
[2022-04-22 16:00] VITALS: BP 126/74; RESP 16
[2022-04-22 16:03] VITALS: PULSE 76
== END 2022-04-22 15:12 | disposition home or self-care (01) | DRG 280 ==
LOC: EC 23:33 → 3SCARD 04-17 01:11
PROVIDERS: ADMIT Internal Medicine; ATTEND Internal Medicine
PROC: 5A09557 Assistance with Respiratory Ventilation, Greater than 96 Consecutive Hours, Continuous Positive Airway Pressure (ICD-10-PCS; principal; 2022-04-17)
PROC: 3E0F7SF Introduction of Other Gas into Respiratory Tract, Via Natural or Artificial Opening (ICD-10-PCS; 2022-04-17)
DX: I13.0 Hypertensive heart and chronic kidney disease with heart failure and stage 1 through stage 4 chronic kidney disease, or unspecified chronic kidney disease (principal); I21.A1 Myocardial infarction type 2; I50.33 Acute on chronic diastolic (congestive) heart failure; J18.9 Pneumonia, unspecified organism; J96.01 Acute respiratory failure with hypoxia; I48.19 Other persistent atrial fibrillation; I74.5 Embolism and thrombosis of iliac artery; N17.9 Acute kidney failure, unspecified; I48.92 Unspecified atrial flutter; Z20.822 Contact with and (suspected) exposure to COVID-19; I08.3 Combined rheumatic disorders of mitral, aortic and tricuspid valves; I70.203 Unspecified atherosclerosis of native arteries of extremities, bilateral legs; D64.9 Anemia, unspecified; E78.5 Hyperlipidemia, unspecified; I08.0 Rheumatic disorders of both mitral and aortic valves; I25.10 Atherosclerotic heart disease of native coronary artery without angina pectoris; I27.20 Pulmonary hypertension, unspecified; I44.7 Left bundle-branch block, unspecified; N18.9 Chronic kidney disease, unspecified; R04.0 Epistaxis; Z79.01 Long term (current) use of anticoagulants; Z79.82 Long term (current) use of aspirin; Z79.890 Hormone replacement therapy; Z79.899 Other long term (current) drug therapy; Z85.820 Personal history of malignant melanoma of skin; Z87.01 Personal history of pneumonia (recurrent); Z87.891 Personal history of nicotine dependence; Z95.3 Presence of xenogenic heart valve; Z88.8 Allergy status to other drugs, medicaments and biological substances
CPT/HCPCS: 36415; 71045; 80048; 80053; 83605; 83615; 83735; 83880; 84100; 84145; 84484; 85025; 85610; 85730; 86140; 87040; 87636; 93005; 93306; 94640; 94660; 94760; 96365; 96374; 96375; 99291

== ENCOUNTER → 2022-08-31 | Outpatient (CLI) | payer OTHER, MEDICARE ==
--- NOTE | 2022-08-31 13:58 | PE ---
EXAMINATION TYPE: PET CT fusion whole body DATE OF EXAM: 08/31/2022 COMPARISON: Prior PET/CT March 16, 2022 and older studies. HISTORY: Mesothelioma progress study. Originally diagnosed on back biopsy July 25 and subsequent surgical excision August 15, 2020. TECHNIQUE: Following the intravenous administration of 10.9 mCi of F-18 FDG, whole body images are p erformed from the top of skull to the bottom of the. Images are reviewed on the computer in the salma nal, axial, and sagittal planes. Reconstructed rotating images are created on independent workstatio n and reviewed on the computer. A localization and attenuation correction CT is performed in conjun ction with the PET scan. Blood glucose level was 92 SCAN: Subsequent Scan FINDINGS: HEAD AND NECK: No areas of suspicious hypermetabolic uptake. CHEST, MEDIASTINUM, AND HILAR REGION: No new areas of suspicious hypermetabolic uptake. Scar not well seen posterior right mid thorax region. No suspicious recurrent hypermetabolic uptake at this level. ABDOMEN AND PELVIS: No new areas of suspicious hypermetabolic uptake. Contrast in mildly distended bl adder is noted. OSSEOUS STRUCTURES: No new areas of suspicious hypermetabolic uptake. LOWER EXTREMITIES: No new areas of suspicious hypermetabolic uptake. OTHER CT: Mild to moderate calcified plaque posteriorly bilateral carotid bulb level is redemonstrate d. Overlying sternal wires and mediastinal clips along with surgical change at level of the aortic va lve is redemonstrated. Surgical change to distal left clavicle redemonstrated. Ascending aortic aneur ysm up to 4.3 cm is redemonstrated. Surgical clips right axilla again seen. Slightly enlarged subcari nal lymph node axial image 114 is stable and remains ametabolic. Small to moderate size hiatal hernia redemonstrated. Diverticula in the sigmoid colon in the pelvis r edemonstrated. There is large size fat-containing left inguinal hernia redemonstrated. Prostate gland stable and mildly enlarged. IMPRESSION: No areas of abnormal hypermetabolic uptake to suggest recurrent or new metastatic maligna nt melanoma.
== END | disposition home or self-care (01) ==
LOC: RADPETMAIN 08:07
PROVIDERS: ATTEND Internal Medicine
DX: C43.9 Malignant melanoma of skin, unspecified (principal)
CPT/HCPCS: 78816; A9552